=== PATIENT | male | born 1960 | race Caucasian/White ===

== ENCOUNTER 2017-05-16 05:28 | Inpatient (IN) | payer OTHER ==
[2017-05-16] MEDS ORDERED: SODIUM CHLORIDE 1,000 ML IV STA (05:50)
--- NOTE | 2017-05-16 05:50 | PDOC ---
History of Present Illness - General Chief Complaint: Injury Stated Complaint: FALL, DIZZINESS Time Seen by Provider: 05/16/17 05:32 History Source: Patient Exam Limitations: No Limitations - History of Present Illness Travel History: No Initial Comments: 05/16/17 05:54 56-year-old male with a history of hypertension and ruptured peptic ulcer x20 years ago presents to the emergency department complaining of dark stool 2 days. Patient states his bowel movements for the past 2 days has been consistent with a dark, tarry copious amount of stool. Patient states he felt dizzy after sitting on the toilet. He suddenly felt dizzy/room spinning which caused him to fall onto the ground in the restroom, striking his left lat eyeborw with +LOC. Patient was initially nauseous but has subsided since arriving to the emergency department. Patient denies any headache, lightheadedness, visual disturbance, facial pains, neck pain/stiffness, back pains, chest pain, shortness of breath, abdominal pains, flank pains, urinary symptoms. Patient states he has no abdominal discomfort but is afraid that he has a recurrent ruptured peptic ulcer. Pt states he had a GIB x20 years ago from taking too many Motrin Pt states he occasionally drinks beer on the weekends Past History - Past Medical History Allergies/Adverse Reactions: Allergies Allergy/AdvReac Type Severity Reaction Status Date / Time No Known Allergies Allergy Verified 05/16/17 06:21 Home Medications: Ambulatory Orders Amlodipine Besylate 10 mg PO 05/16/17 Aspirin 81 mg PO 05/16/17 - Suicide/Smoking/Psychosocial Hx Smoking History: Unknown if ever smoked Have you smoked in the past 12 months: No Information on smoking cessation initiated: No Hx Alcohol Use: No Drug/Substance Use Hx: No Review of Systems - Review of Systems Able to Perform ROS?: Yes Comments:: 05/16/17 06:05 CONSTITUTIONAL: Absent: fever, chills, diaphoresis, generalized weakness, malaise, loss of appetite HEENT: +swelling/pain to lat left eyebrow Absent: rhinorrhea, nasal congestion, throat pain, throat swelling, difficulty swallowing, mouth swelling, ear pain, eye pain, visual Changes CARDIOVASCULAR: Absent: chest pain, loss of consciousness, palpitations, irregular heart rate, peripheral edema RESPIRATORY: Absent: cough, shortness of breath, dyspnea with exertion, orthopnea, wheezing, stridor, hemoptysis GASTROINTESTINAL: Absent: abdominal pain, abdominal distension, nausea, vomiting, diarrhea, constipation, melena, hematochezia GENITOURINARY: Absent: dysuria, frequency, urgency, hesitancy, hematuria, flank pain, genital pain MUSCULOSKELETAL: Absent: myalgia, arthralgia, joint swelling SKIN: Absent: rash, itching, pallor HEMATOLOGIC/IMMUNOLOGIC: Absent: easy bleeding, easy bruising, lymphadenopathy, frequent infections ENDOCRINE: Absent: unexplained weight gain, unexplained weight loss, heat intolerance, cold intolerance NEUROLOGIC: +LOC Absent: headache, focal weakness or paresthesias, dizziness, unsteady gait, seizure, mental status changes, bladder or bowel incontinence PSYCHIATRIC: Absent: anxiety, depression, suicidal or homicidal ideation, hallucinations. Is the patient limited Mosotho proficient: No *Physical Exam - Vital Signs Last Vital Signs Temp Pulse Resp BP Pulse Ox 98.2 F 104 H 14 124/68 93 L 05/16/17 05:30 05/16/17 05:30 05/16/17 05:30 05/16/17 05:30 05/16/17 05:30 - Physical Exam Comments: 05/16/17 06:06 GENERAL: Well developed, well nourished. Awake and alert. No acute distress. HEENT: +swelling/pain to left lat eyebrow Normocephalic, atraumatic. PERRLA, EOMI. No conjunctival pallor. Sclera are non- icteric. Moist mucous membranes. Oropharynx is clear. NECK: Supple. Full ROM. No JVD. Carotid pulses 2+ and symmetric, without bruits. No thyromegaly. No lymphadenopathy. CARDIOVASCULAR: Regular rate and rhythm. No murmurs, rubs, or gallops. Distal pulses are 2+ and symmetric. PULMONARY: No evidence of respiratory distress. Lungs clear to auscultation bilaterally. No wheezing, rales or rhonchi. ABDOMINAL: Soft. Non-tender. Non-distended. No rebound or guarding. No organomegaly. Normoactive bowel sounds. MUSCULOSKELETAL Normal range of motion at all joints. No bony deformities or tenderness. No CVA tenderness. EXTREMITIES: No cyanosis. No clubbing. No edema. No calf tenderness. SKIN: Warm and dry. Normal capillary refill. No rashes. No jaundice. NEUROLOGICAL: Alert, awake, appropriate. Cranial nerves 2-12 intact. No deficits to light touch and temperature in face, upper extremities and lower extremities. No motor deficits in the in face, upper extremities and lower extremities. Normoreflexic in the upper and lower extremities. Normal speech. Toes are down- going bilaterally. Gait is normal without ataxia. PSYCHIATRIC: Cooperative. Good eye contact. Appropriate mood and affect. Heart Score/ECG Review - History History: Slightly suspicious - Electrocardiogram EKG: Normal - Age Age: >/= 65 - Risk Factors Risk Factors Heart Score: Yes Hx Hypertension, Yes Hx Obesity Based on the list above the patient has:: 1-2 risk factors - Troponin Troponin: </= normal limit - Score Heart Score - Total: 3 ED Treatment Course - LABORATORY CBC & Chemistry Diagram: 05/16/17 06:03 05/16/17 06:03 Progress Note - Progress Note Progress Note: 0637hrs: Dr. Wright talking to Dr. Lowe/hospitalist regarding admission. Pt no longer follows Dr. Herrera *DC/Admit/Observation/Transfer Diagnosis at time of Disposition: Syncope Qualifiers: Syncope type: unspecified Qualified Code(s): R55 - Syncope and collapse GI bleed Qualifiers: GI bleed type/associated pathology: unspecified gastrointestinal hemorrhage type Qualified Code(s): K92.2 - Gastrointestinal hemorrhage, unspecified - Discharge Dispostion Condition at time of disposition: Guarded Admit: Yes - Referrals - Patient Instructions - Post Discharge Activity
--- NOTE | 2017-05-16 05:52 | PDOC ---
*Physical Exam - Vital Signs Last Vital Signs Temp Pulse Resp BP Pulse Ox 98.2 F 104 H 14 124/68 93 L 05/16/17 05:30 05/16/17 05:30 05/16/17 05:30 05/16/17 05:30 05/16/17 05:30 ED Treatment Course - LABORATORY CBC & Chemistry Diagram: 05/16/17 15:00 05/16/17 06:03 Medical Decision Making - Medical Decision Making 05/16/17 05:51 agree with care from ANNALISA Mistry *DC/Admit/Observation/Transfer Diagnosis at time of Disposition: Syncope, GI bleed - Discharge Dispostion Condition at time of disposition: Guarded - Referrals - Patient Instructions - Post Discharge Activity
[2017-05-16 06:09] LABS: BASO % 0.9 % (0-2.0); EOS % 0.6 % (0-4.5); HEMATOCRIT 20.5 % (35.4-49); LYMPH % 21.1 % (8-40); MCH 29.5 pg (25.7-33.7); MCHC 32.7 g/dl (32.0-35.9); MEAN CELL VOLUME 90.2 fl (80-96); MEAN PLT VOLUME 8.6 fl (7.5-11.1); MONO % 7.2 % (3.8-10.2); NEUT % 70.2 % (42.8-82.8); PLATELET COUNT 151 K/MM3 (134-434); RBC 2.28 M/mm3 (4.00-5.60); RDW 13.2 % (11.9-15.9); WHITE BLOOD COUNT 9.6 K/mm3 (4.0-10.0)
[2017-05-16 06:19] LABS: HEMOGLOBIN 6.7 GM/dL (11.7-16.9)
[2017-05-16 06:21] LABS: INR 1.12 (0.82-1.09); PROTHROMBIN TIME (PATIENT) 12.7 SEC (9.98-11.88)
[2017-05-16 06:32] LABS: ALBUMIN 2.7 g/dl (3.4-5.0); ANION GAP 11 (8-16); BILIRUBIN,TOTAL 0.2 mg/dL (0.2-1.0); BLOOD UREA NITROGEN 36 mg/dL (7-18); CALCIUM 7.7 mg/dL (8.5-10.1); CHLORIDE 107 mmol/L (98-107); CO2 22 mmol/L (21-32); CREATININE 0.9 mg/dL (0.7-1.3); GLUCOSE,RANDOM 198 mg/dL (74-106); POTASSIUM 4.1 mmol/L (3.5-5.1); SGOT/AST 11 U/L (15-37); SGPT/ALT 29 U/L (12-78); SODIUM 140 mmol/L (136-145); TOT PROT 4.8 g/dl (6.4-8.2)
[2017-05-16 06:33] LABS: ALK PHOS 51 U/L (45-117)
[2017-05-16] MEDS ORDERED: PANTOPRAZOLE SODIUM 80 MG in SODIUM CHLORIDE 100 ML IVPB SCH (06:45)
--- NOTE | 2017-05-16 07:52 | PN ---
Teaching Attending Note Name of Resident: Dolly Hoang ATTENDING PHYSICIAN STATEMENT I saw and evaluated the patient. I reviewed the resident's note and discussed the case with the resident. I agree with the resident's findings and plan as documented. SUBJECTIVE: CC: melena and syncope HPI: 56 y/o gentleman with h/o HTN, upper GI bleed from a PUD and thoracic disk bulge who presented with melena. fr 2 days he had a total of 4 large black BMs. with heart burn. this am , after having a large BM, he felt dizzy, tried to stand up and had syncope with 20 second LOC, and H sided head trauma. after gaining consciousness he vomited once ( green liquid ) . denies any CP or palpitations before or after event. had SOB after syncope briefly. he drinks 4 bees/daily and takes ASA , no NSAIDs use EKG: NSR , synus tach, L axis Cxray: No congestion OBJECTIVE: NAD , AAOX3, pale MM and conjunctivae. EOMI, round equal pupils , reactive to light , L lateral eye brow abrasionand bruising of hte upper lifd. CV: regular rhythm, tachy. LUngs : CTAB Abd: obese, soft, NT, ND , NL BS Ext: no edema , varicose veins. DP 2+ b/l Neuro : EOMI, tongue, and uvula at mid line , round equal reactive pupils, no facial droop. strength 5/5 in upper and lower ext proximally and distally. sreflexes 2+ knee jerk and biceps b/l declined rectal l exam ASSESSMENT AND PLAN: 56 y/o gentleman with h/o HTN, upper GI bleed from a PUD and thoracic disk bulge who presented with melena and was found to have anemia. 1- Acute blood loss anemia. likely upper GI bleed given his history, use of ASa , and Alcohol use . can't R/o Helicobacter Now hemodynamically stable, but slightly tachycardic. - cont PPI gtt - start IVF at 100 cc/hr - NPO - 2 units of RBC ordered. will repeat HB after that - check Helicobacter pylori stool Ag - Evaluated by GI, for EGD this am . - dc asa , asked not to take it in future , as it is for primary prophylaxis only - advised to stop alcohol consumption 2- HTN: hold norvasc in setting of GI bleed 3- Alcohol dependence: monitor for any withdrawal sx. DIspo : tele
--- NOTE | 2017-05-16 08:18 | HP ---
CHIEF COMPLAINT: " Dark stool x 2 days and I passed out " PCP: ANNALISA Jiménez HISTORY OF PRESENT ILLNESS: Patient is an 56 year old male was brought in to the ED via EMS after he passed out in the toilet this morning at 4 am. As per the patient, he noticed dark colored stool since 2 days and was worried about GI bleed as he had GI bleed 30 yrs ago due to excessive intake of Ibuprofen. This morning at around 4am, he went to the toilet to move his bowels, then suddenly he felt dizzy, lightheaded , saw few lights and lost consciouness. He mentions he fell on the left side on the floor. Patient's fiance heard a loud noise and found the patient lying face down on the floor in the toilet. He passed out for about 10-20 secs then was able to move. Had one episode of vomiting after gaining consciouness. Then pts fiance immediately called 911 and brought here for further evaluation. Patient also reports to have palpitation and shortness of breath occasionally x1 day but denies chest pain, cough, fever, chills, rigors, sweating, headache. No h/o taking over the counter medication like Ibuprofen. But takes aspirin for prophylaxis for heart disease. Bladder habit normal. Sleep Normal. Appetite decreased since 2 days after he ate spicy food and had upset stomach. Patients last colonoscopy was 6 yrs ago and it was normal as per the patient. ER course was notable for: (1) Afebrile, hemodynamically stable, H/H: 6.7/20.5 (2) EKG: Sinus tachycardia with PAC (3) IV NS, IV Protonix 80mg bolus followed by the drip, Awaiting 2 PRBC Recent Travel: PAST MEDICAL HISTORY: Hypertension, Peptic ulcer disease, h/o GI bleed due to excessive use of Ibuprofen 30 yrs ago. PAST SURGICAL HISTORY: Left hand surgery Social History: Smoking: Former smoker. Quit 4 yrs ago. Smoked for 20 + yrs about 1 pack/day Alcohol: Last alcohol intake 4 days ago-4cans of beer, drinks beer daily. Drugs: Denies OCCUPATION: works at [employer] Family History: Non contributory. Allergies No Known Allergies Allergy (Verified 05/16/17 06:21) HOME MEDICATIONS: Home Medications Medication Instructions Recorded Amlodipine Besylate 10 mg PO 05/16/17 Aspirin 81 mg PO 05/16/17 REVIEW OF SYSTEMS CONSTITUTIONAL: Absent: fever, chills, diaphoresis, generalized weakness, malaise, loss of appetite, weight change HEENT: Absent: rhinorrhea, nasal congestion, throat pain, throat swelling, difficulty swallowing, mouth swelling, ear pain, eye pain, visual changes CARDIOVASCULAR: Absent: chest pain, syncope, palpitations, irregular heart rate, lightheadedness , peripheral edema RESPIRATORY: Absent: cough, shortness of breath, dyspnea with exertion, orthopnea, wheezing, stridor, hemoptysis GASTROINTESTINAL: Absent: abdominal pain, abdominal distension, nausea, vomiting, diarrhea, constipation, melena, hematochezia GENITOURINARY: Absent: dysuria, frequency, urgency, hesitancy, hematuria, flank pain, genital pain MUSCULOSKELETAL: Absent: myalgia, arthralgia, joint swelling, back pain, neck pain SKIN: Absent: rash, itching, pallor HEMATOLOGIC/IMMUNOLOGIC: Absent: easy bleeding, easy bruising, lymphadenopathy, frequent infections ENDOCRINE: Absent: unexplained weight gain, unexplained weight loss, heat intolerance, cold intolerance NEUROLOGIC: Absent: headache, focal weakness or paresthesias, dizziness, unsteady gait, seizure, mental status changes, bladder or bowel incontinence PSYCHIATRIC: Absent: anxiety, depression, suicidal or homicidal ideation, hallucinations. PHYSICAL EXAMINATION Vital Signs - 24 hr 05/16/17 05/16/17 05:30 06:56 Temperature 98.2 F 97.6 F Pulse Rate 104 H Pulse Rate [ 95 H Left Radial] Respiratory 14 22 Rate Blood Pressure 124/68 Blood Pressure 134/74 [Left Arm] O2 Sat by Pulse 93 L 96 Oximetry (%) GENERAL: Patient is lying comfortably in bed, Awake, alert, and fully oriented, in no acute distress. Looks pale. HEAD: Mild abrasion over the left eyebrow. No gross trauma to the head. EYES: Pallor +, no icterus, EOM intact. EARS, NOSE, THROAT: Ears normal. Dry mucous membranes +. NECK: No JVD, Supple. LUNGS: B/L Breath sounds equal, clear to auscultation bilaterally. No wheezes, and no crackles. No accessory muscle use. HEART: Tachycardia, Regular rate and rhythm, normal S1 and S2 without murmur. ABDOMEN: Soft, nontender, not distended, normoactive bowel sounds, no guarding, no rebound, no masses. No hepatomegaly or splenomegaly. Per rectal: No blood in stool. Stool for occult blood sent. MUSCULOSKELETAL: Normal range of motion at all joints. No bony deformities or tenderness. No CVA tenderness. UPPER EXTREMITIES: 2+ pulses, warm, well-perfused. No cyanosis. No clubbing. No peripheral edema. LOWER EXTREMITIES: 2+ pulses, warm, well-perfused. No calf tenderness. No peripheral edema. NEUROLOGICAL: No facial droop, 5/5 power in all extremities, reflexes intact, Cranial nerves II-XII intact. Normal speech. Gait not observed. PSYCHIATRIC: Cooperative. Good eye contact. Appropriate mood and affect. SKIN: Warm, dry, normal turgor, no rashes or lesions noted, normal capillary refill. Laboratory Results - last 24 hr 05/16/17 05/16/17 05/16/17 06:03 06:03 06:03 WBC 9.6 RBC 2.28 L Hgb 6.7 L* Hct 20.5 L MCV 90.2 MCH 29.5 MCHC 32.7 RDW 13.2 Plt Count 151 MPV 8.6 Neutrophils % 70.2 Lymphocytes % 21.1 Monocytes % 7.2 Eosinophils % 0.6 Basophils % 0.9 PT with INR 12.70 H INR 1.12 Sodium 140 Potassium 4.1 Chloride 107 Carbon Dioxide 22 Anion Gap 11 BUN 36 H Creatinine 0.9 Creat Clearance w eGFR > 60 Random Glucose 198 H Calcium 7.7 L Total Bilirubin 0.2 AST 11 L ALT 29 Alkaline Phosphatase 51 Total Protein 4.8 L Albumin 2.7 L Blood Type Antibody Screen 05/16/17 06:03 WBC RBC Hgb Hct MCV MCH MCHC RDW Plt Count MPV Neutrophils % Lymphocytes % Monocytes % Eosinophils % Basophils % PT with INR INR Sodium Potassium Chloride Carbon Dioxide Anion Gap BUN Creatinine Creat Clearance w eGFR Random Glucose Calcium Total Bilirubin AST ALT Alkaline Phosphatase Total Protein Albumin Blood Type O POSITIVE Antibody Screen Negative ASSESSMENT/PLAN: Patient is an 56 year old male with significant past medical history of Hypertension, Peptic ulcer disease, h/o GI bleed due to excessive use of Ibuprofen 30 yrs ago was brought in to the ED via EMS after his passed out in the toilet this morning at 4 am was found to have anemia. # Acute GI bleed-likely Upper GI. c/o dark stool x 2days, h/o GI bleed in the past, use of aspirin and alcohol intake daily puts him at greater risk of Upper GI bleed. On arrival, vitals stable. No orthostatics. Admit in Tele/Inpatient NPO IV NS @ 100mls/hr Open two large bore IV canula IV Protonix drip 2 PRBC transfusion [address] with Dr. Delgado, once pt receives the blood, plan is to take him for Endoscopy. If EGD is negative, plan is to do colonoscopy, as per Dr. Delgado. Avoid Aspirin Alcohol cessation counseling H.pylori studies sent # Syncope Likely secondary to GI bleed. Head CT: Soft tissue swelling in the left superior orbital/lateral margin. negative for any acute pathology. EKG: Sinus tachycardia with PVCs CXR: Large heart. Old rib # # Hypertension-controlled. Hold Amlodipine. Blood pressure might drop significantly if he has another episode of massive GI bleed. # FEN IV NS @ 100mls/hr Electrolytes wnl NPO # Prophylaxis For DVT: On SCDS, no heparin due to GI bleed For GI: On Protonix drip # Code Status: Full Code # Dispo: Duration of stay unknown. Illness, Investigation and plan of care explained to the patient and his fiance. They verbalized understanding. Case discussed with Dr. Larry. Visit type - Emergency Visit Emergency Visit: Yes ED Registration Date: 05/16/17 Care time: The patient presented to the Emergency Department on the above date and was hospitalized for further evaluation of their emergent condition. - New Patient This patient is new to me today: Yes Date on this admission: 05/16/17 - Critical Care Critical Care patient: No
[2017-05-16] MEDS ORDERED: SODIUM CHLORIDE 1,000 ML IV SCH (08:30)
--- NOTE | 2017-05-16 08:30 | CON.GI ---
Consult Consult Specialty:: GI - History of Present Illness History of Present Illness: Chart reviewed. A 56 yom with remote history of upper GI bleeding ulcer presents with 2 days of melanotic stools followed by syncopal episode at home. In ED, pale, AAO, Hgb 6 g /dl, normotensive, but tachycardic, no orthostatics done up to this point. Reports one episode of vomiting 1 day ago w/o stigmata of bleeding. Denies obdominal pain, fever, chills, back pain, dysphagia, odynophagia, hematemesis, jaundice. No history of liver disease, excessive bleeding. Home medications include ASA. No other OTC drugs incuding NSAIDs. No alcohol abuse. - History Source History Provided By: Patient, Medical Record Limitations to Obtaining History: No Limitations - Past Medical History Cardio/Vascular: Yes: HTN - Alcohol/Substance Use Hx Alcohol Use: No - Smoking History Smoking history: Unknown if ever smoked Have you smoked in the past 12 months: No Home Medications - Allergies Allergies/Adverse Reactions: Allergies Allergy/AdvReac Type Severity Reaction Status Date / Time No Known Allergies Allergy Verified 05/16/17 06:21 - Home Medications Home Medications: Ambulatory Orders Amlodipine Besylate 10 mg PO 05/16/17 Aspirin 81 mg PO 05/16/17 Family Disease History - Family Disease History Family History: Unremarkable Review of Systems Findings/Remarks: asper H&P, HPI Physical Exam-GI Vital Signs: Vital Signs Temperature 97.6 F 05/16/17 06:56 Pulse Rate 95 H 05/16/17 06:56 Respiratory Rate 22 05/16/17 06:56 Blood Pressure 134/74 05/16/17 06:56 O2 Sat by Pulse Oximetry (%) 96 05/16/17 06:56 Constitutional: Yes: Well Nourished, No Distress, Calm, Pallor Eyes: Yes: Conjunctiva Clear HENT: Yes: Atraumatic Neck: Yes: Supple Cardiovascular: Yes: Regular Rate and Rhythm Respiratory: Yes: Regular Gastrointestinal Inspection: No: Ascites, Distention ...Palpate: Yes: Soft. No: Firm/Rigid, Guarding, Tenderness Neurological: Yes: Alert, Oriented Labs: CBC, BMP 05/16/17 06:03 05/16/17 06:03 INR, PTT INR 1.12 (0.82-1.09) 05/16/17 06:03 Laboratory Results - last 24 hr 05/16/17 05/16/17 05/16/17 06:03 06:03 06:03 WBC 9.6 RBC 2.28 L Hgb 6.7 L* Hct 20.5 L MCV 90.2 MCH 29.5 MCHC 32.7 RDW 13.2 Plt Count 151 MPV 8.6 Neutrophils % 70.2 Lymphocytes % 21.1 Monocytes % 7.2 Eosinophils % 0.6 Basophils % 0.9 PT with INR 12.70 H INR 1.12 Sodium 140 Potassium 4.1 Chloride 107 Carbon Dioxide 22 Anion Gap 11 BUN 36 H Creatinine 0.9 Creat Clearance w eGFR > 60 Random Glucose 198 H Calcium 7.7 L Total Bilirubin 0.2 AST 11 L ALT 29 Alkaline Phosphatase 51 Total Protein 4.8 L Albumin 2.7 L Blood Type Antibody Screen Crossmatch 05/16/17 05/16/17 06:03 06:32 WBC RBC Hgb Hct MCV MCH MCHC RDW Plt Count MPV Neutrophils % Lymphocytes % Monocytes % Eosinophils % Basophils % PT with INR INR Sodium Potassium Chloride Carbon Dioxide Anion Gap BUN Creatinine Creat Clearance w eGFR Random Glucose Calcium Total Bilirubin AST ALT Alkaline Phosphatase Total Protein Albumin Blood Type O POSITIVE O POSITIVE Antibody Screen Negative Crossmatch See Detail Assessment/Plan A 56 yom with remote history of upper GI bleeding presents with what appears to be recent GI bleeding with symptomatic blood loss anemia. No overt signs of ongoing GI bleed while in ED Agree with PPI bolus+drip IVF PRBC transusion EGD this AM Discussed with the resident, nurse and the patient while his family present at bedside. Monitor VS, Hgb If EGD negative, will plan colonoscopy
[2017-05-16 08:59] LABS: ARTERIAL BLD GAS O2 SATURATION 96.8 % (90-98.9); ARTERIAL BLOOD GAS BASE EXCESS -3.2 meq/l (-2-2); ARTERIAL BLOOD GAS PCO2 33.2 mmHg (35-45); ARTERIAL BLOOD GAS PO2 81.8 mmHg (80-100); ARTERIAL BLOOD GAS pH 7.41 (7.35-7.45)
[2017-05-16 09:05] LABS: ALLENS TEST POSITIVE
[2017-05-16] MEDS ORDERED: ETOMIDATE 20 MG/10 ML AMPUL IVPUSH ONE (11:29)
[2017-05-16] MEDS ORDERED: LIDOCAINE HCL 2% (20ML MULTI-DOSE VIAL) NR ONE (11:29)
[2017-05-16] MEDS ORDERED: PROPOFOL 20 ML ONE (11:29)
--- NOTE | 2017-05-16 13:02 | EKG ---
Test Reason : Blood Pressure : / mmHG Vent. Rate : 103 BPM Atrial Rate : 103 BPM P-R Int : 128 ms QRS Dur : 090 ms QT Int : 366 ms P-R-T Axes : -23 -30 026 degrees QTc Int : 479 ms SINUS TACHYCARDIA WITH PREMATURE ATRIAL COMPLEXES LEFT AXIS DEVIATION ABNORMAL ECG NO PREVIOUS ECGS AVAILABLE Confirmed by OLIVIA ADAMS MD ([id number]) on 05/16/2017 1:02:08 PM Referred By: Confirmed By:OLIVIA ADAMS MD
--- NOTE | 2017-05-16 13:29 | PROC ---
Endoscopy Procedure Endoscopy procedure completed. Please see scanned procedure report. s/p EGD with cclipping and Epi injection A 1 x1.5 cm duodenal bulb/2nd portion actively bleeding ulcer was found, injected with 1:10,000 epi (20 cc total) and clipped. Complete hemostasis achieved. ICU monitoring cont. PPI IV Carafate liquid 1 gm qid NPO Hgb q6h Stool for H. pylori Ag Repeat EGD as needed and the day before discharging home AXR now r/o perforation
[2017-05-16] MEDS: SODIUM CHLORIDE 1,000 ML IV SCH (13:30)
[2017-05-16 15:43] LABS: HEMATOCRIT 22.9 % (35.4-49); HEMOGLOBIN 7.6 GM/dL (11.7-16.9); MCH 29.5 pg (25.7-33.7); MCHC 33.3 g/dl (32.0-35.9); MEAN CELL VOLUME 88.5 fl (80-96); MEAN PLT VOLUME 8.9 fl (7.5-11.1); PLATELET COUNT 116 K/MM3 (134-434); RBC 2.58 M/mm3 (4.00-5.60); RDW 13.7 % (11.9-15.9); WHITE BLOOD COUNT 9.5 K/mm3 (4.0-10.0)
[2017-05-16] MEDS ORDERED: SUCRALFATE 1 GM/10 ML UNIT DOSE CUPS PO SCH (16:30)
[2017-05-16] MEDS: PANTOPRAZOLE SODIUM 80 MG in SODIUM CHLORIDE 100 ML IVPB SCH (19:00)
--- NOTE | 2017-05-16 19:55 | CONSULT ---
Consult - text type - Consultation Consultation Note: PULM/CCM Consult ICU Admission: CC: GIB HPI: Briefly Mr Leung is a 56-year-old male with a history of hypertension and ruptured peptic ulcer ~ x20 years ago possibly 2/2 Motrin use who today presented to the ED complaining of dark stool 2 days. Risk factors of asa use, ETOH use/abuse, and hx of peptic ulcer disease. He relates an associated syncopal episode today with ~ 20sec LOC, w/o sz activity or post deficit. Does relate striking head but with minimal force and no significant trauma noted. States felt disease after dark tarry BM this am. Denied Chest pn, SOB, abd pain , [place], visual changes, neck pain. In ED was noted to have conjunctival pallor, afebrile, normotensive, mildly tachy. He had Hgb 6.7, down from 14 in 2010 at this institution. He was started on PPI gtt, seen by GI, transfused two PRBC and underwent EGD which showed actively bleeding 1.5 x 1 cm duodenal ulcer which was injected with Epi and clipped, hemostasis was achieved. Pt tolerated procedure well. Repeat Hgb 7.6 post 2 prbc, another to be sent. Admitted to ICU for overnight observation, felt to be high risk for rebleed. PAST MEDICAL HISTORY: Hypertension, Peptic ulcer disease, h/o GI bleed due to excessive use of Ibuprofen 30 yrs ago. PAST SURGICAL HISTORY: Left hand surgery Social History: Smoking: Former smoker. Quit 4 yrs ago. Smoked for 20 + yrs about 1 pack/day Alcohol: Last alcohol intake 4 days ago-4cans of beer, drinks beer daily. Drugs: Denies OCCUPATION: works at [employer] Family History: Non contributory. Allergies No Known Allergies Allergy (Verified 05/16/17 06:21) Active Medications Chlorhexidine Gluconate (Hibiclens For Decolonization -) 1 applic TP HS [facility] Pantoprazole Sodium 80 mg/ (Sodium Chloride) 100 mls @ 10 mls/hr IVPB Q10H [facility] PRN Reason: 8 MG/HR Last Admin: 05/16/17 19:00 Dose: 0 mls Sodium Chloride (Normal Saline -) 1,000 mls @ 100 mls/hr IV ASDIR [facility] Last Admin: 05/16/17 13:30 Dose: 600 mls Mupirocin (Bactroban Ointment (For Decolonization) -) 1 applic NS BID [facility] Stop: 05/21/17 21:59 Sucralfate (Carafate Oral Suspension -) 1 gm PO ACHS [facility] Vital Signs Temp 99.0 F 05/16/17 19:30 Pulse 88 05/16/17 19:30 Resp 20 05/16/17 19:30 BP 132/70 05/16/17 19:30 Pulse Ox 100 05/16/17 18:30 Intake & Output 05/15/17 05/16/17 05/16/17 23:59 11:59 23:59 Intake Total 1450 Output Total 2500 Balance -1050 Weight 127.006 kg Intake: IV 1100 Blood Product 350 Output: Urine 1800 Emesis 700 Other: Height 6 ft 1 in Body Mass Index (BMI) 36.9 Weight Measurement Method Est/Stated by Patient CBCD WBC 9.5 K/mm3 (4.0-10.0) 05/16/17 15:00 RBC 2.58 M/mm3 (4.00-5.60) L 05/16/17 15:00 Hgb 7.6 GM/dL (11.7-16.9) L D 05/16/17 15:00 Hct 22.9 % (35.4-49) L 05/16/17 15:00 MCV 88.5 fl (80-96) 05/16/17 15:00 MCHC 33.3 g/dl (32.0-35.9) 05/16/17 15:00 RDW 13.7 % (11.9-15.9) 05/16/17 15:00 Plt Count 116 K/MM3 (134-434) L D 05/16/17 15:00 MPV 8.9 fl (7.5-11.1) 05/16/17 15:00 CMP Sodium 140 mmol/L (136-145) 05/16/17 06:03 Potassium 4.1 mmol/L (3.5-5.1) 05/16/17 06:03 Chloride 107 mmol/L (98-107) 05/16/17 06:03 Carbon Dioxide 22 mmol/L (21-32) 05/16/17 06:03 Anion Gap 11 (8-16) 05/16/17 06:03 BUN 36 mg/dL (7-18) H 05/16/17 06:03 Creatinine 0.9 mg/dL (0.7-1.3) 05/16/17 06:03 Creat Clearance w eGFR > 60 (>60) 05/16/17 06:03 Random Glucose 198 mg/dL (74-106) H 05/16/17 06:03 Calcium 7.7 mg/dL (8.5-10.1) L 05/16/17 06:03 Total Bilirubin 0.2 mg/dL (0.2-1.0) 05/16/17 06:03 AST 11 U/L (15-37) L 05/16/17 06:03 ALT 29 U/L (12-78) 05/16/17 06:03 Alkaline Phosphatase 51 U/L (45-117) 05/16/17 06:03 Total Protein 4.8 g/dl (6.4-8.2) L 05/16/17 06:03 Albumin 2.7 g/dl (3.4-5.0) L 05/16/17 06:03 PE: EKG: sinus, L axis deviation, no ischemic changes Cxray: No congestion, infiltrate or pneumothorax ABD xray post procedure, no free air, insufflated loops of bowel OBJECTIVE: Gen: awake alert middle age man without distrees HEENT: small abrasion to L lateral eye brow, EOMI CV: regular rhythm, tachy. LUngs : CTAB Abd: obese, soft, NT, ND , NL BS Ext: no edema , varicose veins. DP 2+ b/l Neuro: non-focal, no tremor ASSESSMENT/PLAN: A/ 56 year old male with hx of Peptic ulcer disease, presenting with acute anemia, duodenal ulcer with active bleeding now post EGD with ulcer injected and clipped, here for o/n observation P/ -normal transfusion thresholds, Hgb < 7, Plts < 50, INR >1.5 -serial CBC -PPI gtt x 72 hrs then BID -maintain adequate access, 2 x 18 or greater -consider GDA embo with IR if rebleeds -monitor for ETOH withdrawal, CIWA if concerned -h. pylori studies -sulculfrate -advance diet as per GI Prophy: SCD, PPI Code Status: Full Code Dispo: to floor in am if no further evidence of bleeding 35 min CCT Current Active Problems GI bleed (Acute) Syncope (Acute)
--- NOTE | 2017-05-16 20:11 | PN ---
Progress Note (short form) - Note Progress Note: abd xr results noted
[2017-05-16 22:17] VITALS: BMI 33.2
[2017-05-16 23:22] LABS: HEMATOCRIT 20.7 % (35.4-49); MCHC 33.9 g/dl (32.0-35.9); MEAN CELL VOLUME 88.4 fl (80-96); MEAN PLT VOLUME 8.7 fl (7.5-11.1); PLATELET COUNT 112 K/MM3 (134-434); RBC 2.35 M/mm3 (4.00-5.60); RDW 14.2 % (11.9-15.9); WHITE BLOOD COUNT 8.3 K/mm3 (4.0-10.0)
[2017-05-17] MEDS: SUCRALFATE 1 GM/10 ML UNIT DOSE CUPS PO SCH ×6 (00:49→21:17)
[2017-05-17] MEDS: MUPIROCIN 2% TOPICAL OINTMENT FOR DECOLONIZATION NS SCH ×3 (00:51→21:17)
[2017-05-17] MEDS: CHLORHEXIDINE GLUCONATE 4% CLEANSER FOR DECOLONIZATION TP SCH ×2 (00:52→21:17)
[2017-05-17] MEDS: SODIUM CHLORIDE 1,000 ML IV SCH ×2 (00:53→18:55)
[2017-05-17] MEDS: PANTOPRAZOLE SODIUM 80 MG in SODIUM CHLORIDE 100 ML IVPB SCH ×2 (05:40→18:54)
[2017-05-17 06:07] LABS: BASO % 0.7 % (0-2.0); HEMATOCRIT 18.4 % (35.4-49); LYMPH % 28.1 % (8-40); MCH 29.9 pg (25.7-33.7); MCHC 33.5 g/dl (32.0-35.9); MEAN CELL VOLUME 89.2 fl (80-96); MEAN PLT VOLUME 8.7 fl (7.5-11.1); MONO % 7.8 % (3.8-10.2); NEUT % 62.4 % (42.8-82.8); PLATELET COUNT 103 K/MM3 (134-434); RBC 2.07 M/mm3 (4.00-5.60); RDW 14.4 % (11.9-15.9); WHITE BLOOD COUNT 5.7 K/mm3 (4.0-10.0)
--- NOTE | 2017-05-17 06:37 | PN ---
Physical Exam: SUBJECTIVE: Patient seen and examined. Feels better after transfusion yesterday. 1x black BM yesterday. No chest pain, palpitations, stomach pain. OBJECTIVE: Vital Signs Period Temp Pulse Resp BP Sys/Alas Pulse Ox Last 24 Hr 97.6 F-99.7 F 72-100 15-24 113-1038/51-80 95-100 GENERAL: lying comfortably in bed, nad, aaox3 EYES: sclera anicteric, conjunctiva clear ENT: oropharynx clear without exudates, MMM LUNGS: CTAB HEART: rrr, normal s1/s2, no m/r/g ABDOMEN: protuberant, soft, ntnd, normoactive BS LOWER EXTREMITIES: 2+ DP pulses, wwp, varicose veins, no edema 05/17/17 05/17/17 05:10 05:10 WBC 5.7 D RBC 2.07 L Hgb 6.2 L* D Hct 18.4 L Plt Count 103 L Sodium 145 Potassium 4.1 Chloride 113 H Carbon Dioxide 24 Anion Gap 8 BUN 19 H D Creatinine 0.7 D Creat Clearance w eGFR > 60 Random Glucose 109 H D Calcium 7.5 L Hepatic Panel Total Bilirubin 0.3 mg/dL (0.2-1.0) D 05/17/17 05:10 AST 13 U/L (15-37) L 05/17/17 05:10 ALT 21 U/L (12-78) D 05/17/17 05:10 Alkaline Phosphatase 43 U/L (45-117) L 05/17/17 05:10 Albumin 2.5 g/dl (3.4-5.0) L 05/17/17 05:10 Active Medications Chlorhexidine Gluconate (Hibiclens For Decolonization -) 1 applic TP HS [facility] Last Admin: 05/17/17 21:17 Dose: 1 applic Pantoprazole Sodium 80 mg/ (Sodium Chloride) 100 mls @ 10 mls/hr IVPB Q10H [facility] PRN Reason: 8 MG/HR Last Admin: 05/17/17 18:54 Dose: 10 mls/hr Sodium Chloride (Normal Saline -) 1,000 mls @ 100 mls/hr IV ASDIR [facility] Last Admin: 05/17/17 18:55 Dose: 100 mls/hr Mupirocin (Bactroban Ointment (For Decolonization) -) 1 applic NS BID [facility] Stop: 05/21/17 21:59 Last Admin: 05/17/17 21:17 Dose: 1 applic Sucralfate (Carafate Oral Suspension -) 1 gm PO ACHS [facility] Last Admin: 05/17/17 21:17 Dose: 1 gm ASSESSMENT/PLAN: 56yo man with PMH of HTN, thoracic disk bulge and remote UGIB who p/w syncope in the setting of several days of melena and found to have Hgb 6.7. #PUD with actively bleeding duo bulb ulcer s/p EGD w/ clips and epi yesterday -GI consulted -Acute blood loss anemia this morning - transfuse additional 2U (total 4U) -CBC Q6H, transfuse <7 hgb -PPI gtt -send H. pylori stool Ag -Carafate 1gm ACHS #HTN: hold norvasc in setting of GI bleed #EtOH dependence: monitor for any withdrawal sx. #FEN: NS@100 / lytes wnl / Clears (advance per GI) #PPX -DVT - SCD's -GI - on protonix gtt #DISPO: continue ICU monitoring FULL code d/w Dr. Laron Flores MD PGY1 - Internal Medicine Visit type - Emergency Visit Emergency Visit: No - New Patient This patient is new to me today: Yes Date on this admission: 05/17/17 - Critical Care Critical Care patient: Yes Total Critical Care Time (in minutes): 40 Critical Care Statement: The care of this patient involved high complexity decision making to prevent further life threatening deterioration of the patient 's condition and/or to evaluate & treat vital organ system(s) failure or risk of failure.
[2017-05-17 06:44] LABS: ALBUMIN 2.5 g/dl (3.4-5.0); ANION GAP 8 (8-16); BLOOD UREA NITROGEN 19 mg/dL (7-18); CALCIUM 7.5 mg/dL (8.5-10.1); CHLORIDE 113 mmol/L (98-107); CO2 24 mmol/L (21-32); GLUCOSE,RANDOM 109 mg/dL (74-106); POTASSIUM 4.1 mmol/L (3.5-5.1); SODIUM 145 mmol/L (136-145)
[2017-05-17 06:48] LABS: ALK PHOS 43 U/L (45-117); BILIRUBIN,TOTAL 0.3 mg/dL (0.2-1.0); CHOLESTEROL 94 mg/dL (50-200); CREATININE 0.7 mg/dL (0.7-1.3); SGOT/AST 13 U/L (15-37); SGPT/ALT 21 U/L (12-78); TOT PROT 4.3 g/dl (6.4-8.2); TRIGLYCERIDES 102 mg/dL (35-160)
[2017-05-17 06:53] LABS: HEMOGLOBIN 6.2 GM/dL (11.7-16.9)
--- NOTE | 2017-05-17 07:05 | PN ---
Physical Exam: SUBJECTIVE: Patient seen and examined. No problems overnight- no melena, abdominal pain or hematemesis..Received 2units PRBCs yesterday before endoscopy but dropped H&H this am. For 2 more units of PRBCs today. Slept with NC-2L overnight but sating well on room air. OBJECTIVE: Vital Signs Period Temp Pulse Resp BP Sys/Alsa Pulse Ox Last 24 Hr 98.0 F-99.7 F 72-100 15-24 113-1038/51-80 95-100 Vital Signs Temp 99.7 F H 05/17/17 02:00 Pulse 72 05/17/17 06:00 Resp 20 05/17/17 04:00 BP 126/62 05/17/17 06:00 Pulse Ox 100 05/16/17 21:00 Intake & Output 05/16/17 05/16/17 05/17/17 11:59 23:59 11:59 Intake Total 1890 770 Output Total 2900 850 Balance -1010 -80 Weight 127.006 kg 127.006 kg 133.81 kg Intake: IV 1500 700 Normal Saline - 1,000 ml 400 700 @ 100 mls/hr IV ASDIR [facility] Rx#:[id number] IVPB 40 70 Blood Product 350 Output: Urine 2200 850 Void 400 850 Emesis 700 Other: Voiding Method Urinal Height 1.85 m 1.96 m Body Mass Index (BMI) 36.9 33.2 Weight Measurement Method Stated by Patient Built in [facility] Weight Measurement Method Est/Stated by Patient GENERAL: The patient is babatunde PERRL, extraocke, alert, and fully oriented, sating well on room air. HEAD: Bruise on R side of eye EYES: Bruise over R eye.ular movements intact, sclera anicteric, conjunctiva clear. No ptosis. ENT: oropharynx clear without exudates, moist mucous membranes. NECK: Trachea midline, full range of motion, supple. LUNGS: Breath sounds equal, clear to auscultation bilaterally, no wheezes, no crackles, no accessory muscle use. HEART: Regular rate and rhythm, S1, S2 without murmur, rub or gallop. ABDOMEN: Soft, obese, nonepigastric tenderness, nontender, nondistended, normoactive bowel sounds, EXTREMITIES: 2+ pulses, warm, well-perfused, no edema. NEUROLOGICAL: AAO Normal speech, gait not observed. PSYCH: Normal mood, normal affect. SKIN: Warm, dry, normal turgor, no rashes or lesions noted Laboratory Results - last 24 hr 05/16/17 05/16/17 05/16/17 06:03 06:32 08:45 WBC RBC Hgb Hct MCV MCH MCHC RDW Plt Count MPV Neutrophils % Lymphocytes % Monocytes % Eosinophils % Basophils % Puncture Site Right radial ABG pH 7.41 ABG pCO2 at Pt Temp 33.2 L ABG pO2 at Pt Temp 81.8 ABG HCO3 20.6 L ABG O2 Sat (Measured) 96.8 ABG O2 Content 7.9 L* ABG Base Excess -3.2 L Gonzalo Test Positive O2 Delivery Device Room air Oxygen Flow Rate No Mechanical Rate No PEEP 0.0 Sodium Potassium Chloride Carbon Dioxide Anion Gap BUN Creatinine Creat Clearance w eGFR Random Glucose Calcium Total Bilirubin AST ALT Alkaline Phosphatase Total Protein Albumin Triglycerides Cholesterol Blood Type O POSITIVE O POSITIVE Antibody Screen Negative Crossmatch See Detail See Detail 05/16/17 05/16/17 05/17/17 15:00 23:00 05:10 WBC 9.5 8.3 5.7 D RBC 2.58 L 2.35 L 2.07 L Hgb 7.6 L D 7.0 L 6.2 L* D Hct 22.9 L 20.7 L 18.4 L MCV 88.5 88.4 89.2 MCH 29.5 30.0 29.9 MCHC 33.3 33.9 33.5 RDW 13.7 14.2 14.4 Plt Count 116 L D 112 L 103 L MPV 8.9 8.7 8.7 Neutrophils % 62.4 Lymphocytes % 28.1 D Monocytes % 7.8 Eosinophils % 1.0 Basophils % 0.7 Puncture Site ABG pH ABG pCO2 at Pt Temp ABG pO2 at Pt Temp ABG HCO3 ABG O2 Sat (Measured) ABG O2 Content ABG Base Excess Gonzalo Test O2 Delivery Device Oxygen Flow Rate Mechanical Rate PEEP Sodium Potassium Chloride Carbon Dioxide Anion Gap BUN Creatinine Creat Clearance w eGFR Random Glucose Calcium Total Bilirubin AST ALT Alkaline Phosphatase Total Protein Albumin Triglycerides Cholesterol Blood Type Antibody Screen Crossmatch 05/17/17 05:10 WBC RBC Hgb Hct MCV MCH MCHC RDW Plt Count MPV Neutrophils % Lymphocytes % Monocytes % Eosinophils % Basophils % Puncture Site ABG pH ABG pCO2 at Pt Temp ABG pO2 at Pt Temp ABG HCO3 ABG O2 Sat (Measured) ABG O2 Content ABG Base Excess Gonzalo Test O2 Delivery Device Oxygen Flow Rate Mechanical Rate PEEP Sodium 145 Potassium 4.1 Chloride 113 H Carbon Dioxide 24 Anion Gap 8 BUN 19 H D Creatinine 0.7 D Creat Clearance w eGFR > 60 Random Glucose 109 H D Calcium 7.5 L Total Bilirubin 0.3 D AST 13 L ALT 21 D Alkaline Phosphatase 43 L Total Protein 4.3 L Albumin 2.5 L Triglycerides 102 Cholesterol 94 Blood Type Antibody Screen Crossmatch Active Medications Generic Name Dose Route Start Last Admin Trade Name Freq PRN Reason Stop Dose Admin Chlorhexidine Gluconate 1 applic 05/16/17 22:00 05/17/17 00:52 Hibiclens For Decolonization - TP 1 applic HS [facility] Administration Pantoprazole Sodium 80 mg/ 100 mls @ 10 mls/hr 05/16/17 16:45 05/17/17 05:40 Sodium Chloride IVPB 10 mls/hr Q10H [facility] Administration 8 MG/HR Sodium Chloride 1,000 mls @ 100 mls/hr 05/16/17 15:27 05/17/17 00:53 Normal Saline - IV 100 mls/hr ASDIR [facility] Administration Mupirocin 1 applic 05/16/17 22:00 05/17/17 00:51 Bactroban Ointment (For Decolonization) - NS 05/21/17 21:59 1 applic BID [facility] Administration Sucralfate 1 gm 05/16/17 16:30 05/17/17 06:08 Carafate Oral Suspension - PO 1 gm ACHS [facility] Administration ASSESSMENT/PLAN: 56 y/o M with PMHx of HTN, thoracic disk bulge, presenting with UGI 2/2 to chronic PUD and anemia. GI/Nutrition Acute GI bleed-likely Upper GI. H&H on presentation- 6.7 Received 2units PRBCs Endoscopy done yesterday- Dr Delgado For 2 more units PRBCs today- pending IV NS @ 100mls/hr NPO IV Protonix drip Oral sucralfate 1gm ACHS pending H pylori test CBC Monitor Neuro: AAOx3 Hx of Syncope-Likely due to anemia Head CT: Soft tissue swelling in the left superior orbital/lateral margin. negative for any acute pathology. Cardio/Lytes: Hypertension-normotensive Hold Amlodipine. Monitor BP IV NS @ 100mls/hr Electrolytes -stable CMP NPO Respiratory: Acute hypoxic respiratory failure Resolved Prophylaxis: For DVT: On SCDS, no heparin due to GI bleed For GI: On Protonix drip Dispo: For likely tele transfer if stable after transfusion Visit type - Emergency Visit Emergency Visit: Yes ED Registration Date: 05/16/17 Care time: The patient presented to the Emergency Department on the above date and was hospitalized for further evaluation of their emergent condition. - New Patient This patient is new to me today: Yes Date on this admission: 05/17/17 - Critical Care Critical Care patient: Yes Total Critical Care Time (in minutes): 30 Critical Care Statement: The care of this patient involved high complexity decision making to prevent further life threatening deterioration of the patient 's condition and/or to evaluate & treat vital organ system(s) failure or risk of failure. - Discharge Referral Referred to [facility] No
[2017-05-17 07:23] LABS: HDL CHOLESTEROL 26 mg/dL (40-60); LDL CHOLESTEROL (ONLY SJRH) 61 mg/dL (5-100)
--- NOTE | 2017-05-17 11:00 | PN ---
Teaching Attending Note Name of Resident: Madison Ariana Whitakerpham ATTENDING PHYSICIAN STATEMENT I saw and evaluated the patient. I reviewed the resident's note and discussed the case with the resident. I agree with the resident's findings and plan as documented. SUBJECTIVE: Patient seen and examined in the ICU. Awake and alert. Receiving pRBCs. Denies abdominal pain. Denies CP or SOB. PPI drip. Intake & Output 05/14/17 05/15/17 05/16/17 05/17/17 23:59 23:59 23:59 23:59 Intake Total 1890 770 Output Total 2900 850 Balance -1010 -80 Weight 280 lb 295 lb Last Vital Signs Temp Pulse Resp BP Pulse Ox 99.6 F 70 18 122/86 100 05/17/17 10:00 05/17/17 10:00 05/17/17 10:00 05/17/17 10:00 05/16/17 21:00 Active Medications Chlorhexidine Gluconate (Hibiclens For Decolonization -) 1 applic TP HS [facility] Last Admin: 05/17/17 00:52 Dose: 1 applic Pantoprazole Sodium 80 mg/ (Sodium Chloride) 100 mls @ 10 mls/hr IVPB Q10H [facility] PRN Reason: 8 MG/HR Last Admin: 05/17/17 05:40 Dose: 10 mls/hr Sodium Chloride (Normal Saline -) 1,000 mls @ 100 mls/hr IV ASDIR [facility] Last Admin: 05/17/17 00:53 Dose: 100 mls/hr Mupirocin (Bactroban Ointment (For Decolonization) -) 1 applic NS BID [facility] Stop: 05/21/17 21:59 Last Admin: 05/17/17 10:29 Dose: 1 applic Sucralfate (Carafate Oral Suspension -) 1 gm PO ACHS [facility] Last Admin: 05/17/17 10:28 Dose: 1 gm OBJECTIVE: Gen: awake alert, no acute distress HEENT: small abrasion to L lateral eye brow, EOMI CV: regular rhythm, tachy. Lungs : Clear Abd: obese, soft, NT, ND , NL BS Ext: no edema , varicose veins. DP 2+ b/l Neuro: non-focal, no tremor Laboratory Results - last 24 hr 05/16/17 05/16/17 05/16/17 06:03 06:32 15:00 WBC 9.5 RBC 2.58 L Hgb 7.6 L D Hct 22.9 L MCV 88.5 MCH 29.5 MCHC 33.3 RDW 13.7 Plt Count 116 L D MPV 8.9 Neutrophils % Lymphocytes % Monocytes % Eosinophils % Basophils % Sodium Potassium Chloride Carbon Dioxide Anion Gap BUN Creatinine Creat Clearance w eGFR Random Glucose Calcium Total Bilirubin AST ALT Alkaline Phosphatase Total Protein Albumin Triglycerides Cholesterol Total LDL Cholesterol HDL Cholesterol Blood Type O POSITIVE O POSITIVE Antibody Screen Negative Crossmatch See Detail See Detail 05/16/17 05/17/17 05/17/17 23:00 05:10 05:10 WBC 8.3 5.7 D RBC 2.35 L 2.07 L Hgb 7.0 L 6.2 L* D Hct 20.7 L 18.4 L MCV 88.4 89.2 MCH 30.0 29.9 MCHC 33.9 33.5 RDW 14.2 14.4 Plt Count 112 L 103 L MPV 8.7 8.7 Neutrophils % 62.4 Lymphocytes % 28.1 D Monocytes % 7.8 Eosinophils % 1.0 Basophils % 0.7 Sodium 145 Potassium 4.1 Chloride 113 H Carbon Dioxide 24 Anion Gap 8 BUN 19 H D Creatinine 0.7 D Creat Clearance w eGFR > 60 Random Glucose 109 H D Calcium 7.5 L Total Bilirubin 0.3 D AST 13 L ALT 21 D Alkaline Phosphatase 43 L Total Protein 4.3 L Albumin 2.5 L Triglycerides 102 Cholesterol 94 Total LDL Cholesterol 61 HDL Cholesterol 26 L Blood Type Antibody Screen Crossmatch 05/17/17 08:20 WBC RBC Hgb Hct MCV MCH MCHC RDW Plt Count MPV Neutrophils % Lymphocytes % Monocytes % Eosinophils % Basophils % Sodium Potassium Chloride Carbon Dioxide Anion Gap BUN Creatinine Creat Clearance w eGFR Random Glucose Calcium Total Bilirubin AST ALT Alkaline Phosphatase Total Protein Albumin Triglycerides Cholesterol Total LDL Cholesterol HDL Cholesterol Blood Type O POSITIVE Antibody Screen Negative Crossmatch ASSESSMENT/PLAN: Acute GI bleed due to Peptic ulcer disease/Duodenal Ulcer Acute anemia S/P EGD with ulcer injected and clipped NSAID/ASA use -Normal transfusion thresholds, Hgb < 7, Plts < 50, INR >1.5 -serial CBC -PPI gtt x 72 hrs then BID -maintain adequate access -consider GDA embo with IR if rebleeds -monitor for ETOH withdrawal, CIWA if needed -sulculfrate -PO when OK with GI -SCDs Dr Feliz Critical care time spent in reviewing chart, evaluating patient and formulating plan - 36 minutes.
[2017-05-17] MEDS ORDERED: PT OWN MED DRAWER 7, Y5N ONE ×3 (13:55→17:07)
--- NOTE | 2017-05-17 14:19 | PN ---
Progress Note, Physician History of Present Illness: Chart reviewed. Asymptomatic, no complaints. Had melanotic, formed stools this am. Hgb 6 g/dl VS normal. Receiving blood. - Current Medication List Current Medications: Active Medications Chlorhexidine Gluconate (Hibiclens For Decolonization -) 1 applic TP HS [facility] Last Admin: 05/17/17 00:52 Dose: 1 applic Pantoprazole Sodium 80 mg/ (Sodium Chloride) 100 mls @ 10 mls/hr IVPB Q10H [facility] PRN Reason: 8 MG/HR Last Admin: 05/17/17 05:40 Dose: 10 mls/hr Sodium Chloride (Normal Saline -) 1,000 mls @ 100 mls/hr IV ASDIR [facility] Last Admin: 05/17/17 00:53 Dose: 100 mls/hr Mupirocin (Bactroban Ointment (For Decolonization) -) 1 applic NS BID [facility] Stop: 05/21/17 21:59 Last Admin: 05/17/17 10:29 Dose: 1 applic Sucralfate (Carafate Oral Suspension -) 1 gm PO ACHS [facility] Last Admin: 05/17/17 10:28 Dose: 1 gm - Objective Vital Signs: Vital Signs Temperature 99.6 F 05/17/17 10:00 Pulse Rate 70 05/17/17 10:00 Respiratory Rate 18 05/17/17 10:00 Blood Pressure 122/86 05/17/17 10:00 O2 Sat by Pulse Oximetry (%) 100 05/16/17 21:00 Labs: CBC, BMP 05/17/17 05:10 05/17/17 05:10 INR, PTT INR 1.12 (0.82-1.09) 05/16/17 06:03 Problem List - Problems (1) Duodenal ulcer Code(s): K26.9 - DUODENAL ULCER, UNSP ACUTE OR CHRONIC, W/O HEMOR OR PERF (2) GI bleed Code(s): K92.2 - GASTROINTESTINAL HEMORRHAGE, UNSPECIFIED Qualifiers: GI bleed type/associated pathology: unspecified gastrointestinal hemorrhage type Qualified Code(s): K92.2 - Gastrointestinal hemorrhage, unspecified Assessment/Plan Actively bleeding duodenal ulcer in a dificult location, poorly amendable to clipping was found. S/p EGD with succesful control of bleeding. Drop in hemoglobin overnight likely represents equilibration, however if continues to decrease, with melanotic, crampy diarrhea, a repeat EGD, or IR for embolization will be warranted. This was discussed with the patient. Clear diet today close monitoring continue PPI and carafate
[2017-05-17 17:39] LABS: BASO % 0.9 % (0-2.0); EOS % 1.9 % (0-4.5); HEMATOCRIT 24.6 % (35.4-49); HEMOGLOBIN 8.3 GM/dL (11.7-16.9); MCH 29.7 pg (25.7-33.7); MCHC 33.7 g/dl (32.0-35.9); MEAN CELL VOLUME 88.1 fl (80-96); MEAN PLT VOLUME 8.4 fl (7.5-11.1); MONO % 7.6 % (3.8-10.2); NEUT % 59.6 % (42.8-82.8); PLATELET COUNT 106 K/MM3 (134-434); RBC 2.79 M/mm3 (4.00-5.60); RDW 14.8 % (11.9-15.9); WHITE BLOOD COUNT 5.7 K/mm3 (4.0-10.0)
--- NOTE | 2017-05-17 17:50 | PN ---
Teaching Attending Note Name of Resident: Sabrina Flores ATTENDING PHYSICIAN STATEMENT I saw and evaluated the patient. I reviewed the resident's note and discussed the case with the resident. I agree with the resident's findings and plan as documented. SUBJECTIVE: no abd pain , smith sno fever or chills, one black BM yesterday OBJECTIVE: NAD , AAOX3, pale MM and conjunctivae. CV: RRR LUngs : CTAB Abd: obese, soft, NT, ND , NL BS Ext: no edema , varicose veins. DP 2+ b/l ASSESSMENT AND PLAN: 56 y/o gentleman with h/o HTN, upper GI bleed from a PUD and thoracic disk bulge who presented with melena and was found to have anemia. 1- Acute blood loss anemia. due to bleeding duodDENAL uLCER - S/P 4 UNITS OF rbc , hb 8.3 - CONT ppi GTT - CLEARS - CHEK hB Q 6 HR , TRANSFUSE FOR hB < 7 . 2- HTN: cont to hold norvasc 3- Alcohol dependence: monitor for any withdrawal sx. Critical Care Total Critical Care Time (in minutes): 35 Critical Care Statement: The care of this patient involved high complexity decision making to prevent further life threatening deterioration of the patient 's condition and/or to evaluate & treat vital organ system(s) failure or risk of failure.
[2017-05-17 21:39] LABS: BASO % 0.8 % (0-2.0); EOS % 2.4 % (0-4.5); HEMATOCRIT 24.5 % (35.4-49); HEMOGLOBIN 8.1 GM/dL (11.7-16.9); MCH 29.2 pg (25.7-33.7); MCHC 33.2 g/dl (32.0-35.9); MEAN CELL VOLUME 87.9 fl (80-96); MEAN PLT VOLUME 7.9 fl (7.5-11.1); MONO % 8.6 % (3.8-10.2); NEUT % 60.2 % (42.8-82.8); PLATELET COUNT 107 K/MM3 (134-434); RBC 2.79 M/mm3 (4.00-5.60); RDW 15.2 % (11.9-15.9); WHITE BLOOD COUNT 5.9 K/mm3 (4.0-10.0)
[2017-05-18] MEDS: PANTOPRAZOLE SODIUM 80 MG in SODIUM CHLORIDE 100 ML IVPB SCH ×6 (01:00→22:45)
[2017-05-18] MEDS: SODIUM CHLORIDE 1,000 ML IV SCH (03:00)
[2017-05-18] MEDS ORDERED: PT OWN MED DRAWER 7, Y5N ONE ×3 (06:25→21:58)
[2017-05-18 06:33] LABS: BASO % 0.9 % (0-2.0); EOS % 3.2 % (0-4.5); HEMATOCRIT 23.8 % (35.4-49); HEMOGLOBIN 7.9 GM/dL (11.7-16.9); LYMPH % 30.3 % (8-40); MCH 29.4 pg (25.7-33.7); MCHC 33.4 g/dl (32.0-35.9); MEAN CELL VOLUME 87.9 fl (80-96); MEAN PLT VOLUME 8.4 fl (7.5-11.1); NEUT % 56.6 % (42.8-82.8); PLATELET COUNT 108 K/MM3 (134-434); RDW 15.1 % (11.9-15.9); WHITE BLOOD COUNT 4.7 K/mm3 (4.0-10.0)
[2017-05-18 06:57] LABS: ALBUMIN 2.6 g/dl (3.4-5.0); ANION GAP 10 (8-16); BLOOD UREA NITROGEN 13 mg/dL (7-18); CALCIUM 7.7 mg/dL (8.5-10.1); CHLORIDE 111 mmol/L (98-107); CO2 24 mmol/L (21-32); GLUCOSE,RANDOM 94 mg/dL (74-106); POTASSIUM 3.5 mmol/L (3.5-5.1); SODIUM 145 mmol/L (136-145)
[2017-05-18 07:01] LABS: ALK PHOS 49 U/L (45-117); BILIRUBIN,TOTAL 0.4 mg/dL (0.2-1.0); CREATININE 0.7 mg/dL (0.7-1.3); SGOT/AST 20 U/L (15-37); SGPT/ALT 29 U/L (12-78); TOT PROT 4.7 g/dl (6.4-8.2)
[2017-05-18] MEDS: SUCRALFATE 1 GM/10 ML UNIT DOSE CUPS PO SCH ×3 (08:22→21:25)
--- NOTE | 2017-05-18 08:32 | PN ---
Teaching Attending Note Name of Resident: Randall Flanagan ATTENDING PHYSICIAN STATEMENT I saw and evaluated the patient. I reviewed the resident's note and discussed the case with the resident. I agree with the resident's findings and plan as documented. SUBJECTIVE: no abd pain, s,all black BMs over night , no fever or chills. no light headedness OBJECTIVE: NAD , AAOX3, CV: RRR LUngs : CTAB Abd: obese, soft, NT, ND , NL BS Ext: no edema , varicose veins. DP 2+ b/l ASSESSMENT AND PLAN: 56 y/o gentleman with h/o HTN, upper GI bleed from a PUD and thoracic disk bulge who presented with melena and was found to have anemia. 1- Acute blood loss anemia. due to bleeding duodenal ulcer - Hb 7.9 after 4 untis of RBCs . will repeat HB today -cont PPI , might be able to switch to IV PPI if Hb remains stable - advance diet to full liquids - transfuse if Hb < 7 2- HTN: cont to hold norvasc 3- Alcohol dependence: monitor for any withdrawal sx. Transfer to floor
--- NOTE | 2017-05-18 09:19 | PN ---
Progress Note (short form) - Note Progress Note: Patient seen and examined in the ICU. Awake and alert. Still with dark. Denies abdominal pain. Denies CP or SOB. Intake & Output 05/15/17 05/16/17 05/17/17 05/18/17 23:59 23:59 23:59 23:59 Intake Total 1890 2320 1070 Output Total 2900 1250 Balance -1010 1070 1070 Weight 280 lb 295 lb 298 lb Last Vital Signs Temp Pulse Resp BP Pulse Ox 97.9 F 72 22 121/54 95 05/18/17 08:00 05/18/17 08:00 05/18/17 08:00 05/18/17 08:00 05/18/17 08:27 Active Medications Chlorhexidine Gluconate (Hibiclens For Decolonization -) 1 applic TP HS [facility] Last Admin: 05/17/17 21:17 Dose: 1 applic Pantoprazole Sodium 80 mg/ (Sodium Chloride) 100 mls @ 10 mls/hr IVPB Q10H [facility] PRN Reason: 8 MG/HR Last Admin: 05/18/17 01:00 Dose: 10 mls/hr Sodium Chloride (Normal Saline -) 1,000 mls @ 100 mls/hr IV ASDIR [facility] Last Admin: 05/18/17 03:00 Dose: 100 mls/hr Mupirocin (Bactroban Ointment (For Decolonization) -) 1 applic NS BID [facility] Stop: 05/21/17 21:59 Last Admin: 05/17/17 21:17 Dose: 1 applic Sucralfate (Carafate Oral Suspension -) 1 gm PO ACHS [facility] Last Admin: 05/18/17 08:22 Dose: 1 gm OBJECTIVE: Gen: awake alert, no acute distress HEENT: small abrasion to L lateral eye brow, EOMI CV: regular rhythm, tachy. Lungs : Clear Abd: obese, soft, NT, ND , NL BS Ext: no edema , varicose veins. DP 2+ b/l Neuro: non-focal, no tremor Laboratory Results - last 24 hr 05/16/17 05/17/17 05/17/17 06:32 08:20 16:55 WBC 5.7 RBC 2.79 L D Hgb 8.3 L D Hct 24.6 L D MCV 88.1 MCH 29.7 MCHC 33.7 RDW 14.8 Plt Count 106 L MPV 8.4 Neutrophils % 59.6 Lymphocytes % 30.0 Monocytes % 7.6 Eosinophils % 1.9 D Basophils % 0.9 Sodium Potassium Chloride Carbon Dioxide Anion Gap BUN Creatinine Creat Clearance w eGFR Random Glucose Calcium Total Bilirubin AST ALT Alkaline Phosphatase Total Protein Albumin Blood Type O POSITIVE O POSITIVE Antibody Screen Negative Crossmatch See Detail 05/17/17 05/18/17 05/18/17 21:33 06:15 06:15 WBC 5.9 4.7 RBC 2.79 L 2.70 L Hgb 8.1 L 7.9 L Hct 24.5 L 23.8 L MCV 87.9 87.9 MCH 29.2 29.4 MCHC 33.2 33.4 RDW 15.2 15.1 Plt Count 107 L 108 L MPV 7.9 8.4 Neutrophils % 60.2 56.6 Lymphocytes % 28.0 30.3 Monocytes % 8.6 9.0 Eosinophils % 2.4 3.2 Basophils % 0.8 0.9 Sodium 145 Potassium 3.5 Chloride 111 H Carbon Dioxide 24 Anion Gap 10 BUN 13 D Creatinine 0.7 Creat Clearance w eGFR > 60 Random Glucose 94 Calcium 7.7 L Total Bilirubin 0.4 D AST 20 D ALT 29 D Alkaline Phosphatase 49 Total Protein 4.7 L Albumin 2.6 L Blood Type Antibody Screen Crossmatch ASSESSMENT/PLAN: Acute GI bleed due to Peptic ulcer disease/Duodenal Ulcer Acute anemia S/P EGD with ulcer injected and clipped NSAID/ASA use -Normal transfusion thresholds, Hgb < 7, Plts < 50, INR >1.5 -PPI -maintain adequate access -monitor for ETOH withdrawal -sulculfrate -Clears, advance per GI -SCDs Dr Feliz Critical care time spent in reviewing chart, evaluating patient and formulating plan - 36 minutes.
--- NOTE | 2017-05-18 13:56 | PN ---
Physical Exam: SUBJECTIVE: Patient seen and examined at bedside. No new complaints. No overnight events. No signs of active bleeding. Denies CP,[place], SOB abdominal pain , nausea, vomiting or diarrhea. OBJECTIVE: Vital Signs Period Temp Pulse Resp BP Sys/Alas Pulse Ox Last 24 Hr 97.9 F-101.3 F 71-106 16-26 115-136/30-69 95 GENERAL: AAOx3 . NAD HEAD:NC/AT EYES: PERRL, EOMI ENT:moist mucous membranes. NECK: supple, no jvd LUNGS: CTAB, no wheezing or rhonchi HEART: RRR, No m/g/r ABDOMEN: Soft,obese, nontender, nondistended, normoactive bowel sounds, no guarding, no rebound, no hepatosplenomegaly, no masses. EXTREMITIES: 2+ pulses, warm, well-perfused, vericose veins. no edema. NEUROLOGICAL: Cranial nerves II through XII grossly intact. Normal speech, gait not observed. PSYCH: Normal mood, normal affect. SKIN: Warm, dry, normal turgor, no rashes or lesions noted Laboratory Results - last 24 hr 05/17/17 05/17/17 05/17/17 05:10 16:55 21:33 WBC 5.7 5.9 RBC 2.79 L D 2.79 L Hgb 8.3 L D 8.1 L Hct 24.6 L D 24.5 L MCV 88.1 87.9 MCH 29.7 29.2 MCHC 33.7 33.2 RDW 14.8 15.2 Plt Count 106 L 107 L MPV 8.4 7.9 Neutrophils % 59.6 60.2 Lymphocytes % 30.0 28.0 Monocytes % 7.6 8.6 Eosinophils % 1.9 D 2.4 Basophils % 0.9 0.8 Sodium Potassium Chloride Carbon Dioxide Anion Gap BUN Creatinine Creat Clearance w eGFR Random Glucose Hemoglobin A1c % 5.2 Calcium Total Bilirubin AST ALT Alkaline Phosphatase Total Protein Albumin 05/18/17 05/18/17 06:15 06:15 WBC 4.7 RBC 2.70 L Hgb 7.9 L Hct 23.8 L MCV 87.9 MCH 29.4 MCHC 33.4 RDW 15.1 Plt Count 108 L MPV 8.4 Neutrophils % 56.6 Lymphocytes % 30.3 Monocytes % 9.0 Eosinophils % 3.2 Basophils % 0.9 Sodium 145 Potassium 3.5 Chloride 111 H Carbon Dioxide 24 Anion Gap 10 BUN 13 D Creatinine 0.7 Creat Clearance w eGFR > 60 Random Glucose 94 Hemoglobin A1c % Calcium 7.7 L Total Bilirubin 0.4 D AST 20 D ALT 29 D Alkaline Phosphatase 49 Total Protein 4.7 L Albumin 2.6 L Active Medications Generic Name Dose Route Start Last Admin Trade Name Freq PRN Reason Stop Dose Admin Chlorhexidine Gluconate 1 applic 05/16/17 22:00 05/17/17 21:17 Hibiclens For Decolonization - TP 1 applic HS [facility] Administration Pantoprazole Sodium 80 mg/ 100 mls @ 10 mls/hr 05/16/17 16:45 05/18/17 10:13 Sodium Chloride IVPB Not Given Q10H [facility] 8 MG/HR Sodium Chloride 1,000 mls @ 100 mls/hr 05/16/17 15:27 05/18/17 03:00 Normal Saline - IV 100 mls/hr ASDIR [facility] Administration Mupirocin 1 applic 05/16/17 22:00 05/17/17 21:17 Bactroban Ointment (For Decolonization) - NS 05/21/17 21:59 1 applic BID [facility] Administration Sucralfate 1 gm 05/16/17 16:30 05/18/17 11:03 Carafate Oral Suspension - PO 1 gm ACHS [facility] Administration ASSESSMENT/PLAN: 56 y/o gentleman with h/o HTN, upper GI bleed from a PUD admitted for acute GI bleed. DISPO: can be transferred to MED/[facility]UR[facility] Problem List - Problems (1) GI bleed Assessment/Plan: S/P EGD with clipping of duodenal ulcer. * He has recieved 4 units PRBC and Hgb 7.9 * GI consult appreciated will continue PPI drip and full liquid diet. * Will switch to IV PPI if Hgb remains stable. * Advance diet as tolerated. * transfuse if Hgb <7 (2) Duodenal ulcer (3) HTN (hypertension) Assessment/Plan: Will continue to hold norvasc. Code(s): I10 - ESSENTIAL (PRIMARY) HYPERTENSION Qualifiers: Hypertension type: essential hypertension Qualified Code(s): I10 - Essential (primary) hypertension (4) Alcohol dependence Assessment/Plan: Will continue to monitor for signs of withdrawal. (5) DVT prophylaxis Assessment/Plan: contraindicated because of bleeding. Visit type - Emergency Visit Emergency Visit: Yes ED Registration Date: 05/16/17 Care time: The patient presented to the Emergency Department on the above date and was hospitalized for further evaluation of their emergent condition. - New Patient This patient is new to me today: Yes Date on this admission: 05/18/17 - Critical Care Critical Care patient: Yes Total Critical Care Time (in minutes): 45 Critical Care Statement: The care of this patient involved high complexity decision making to prevent further life threatening deterioration of the patient 's condition and/or to evaluate & treat vital organ system(s) failure or risk of failure.
--- NOTE | 2017-05-18 14:13 | PN ---
GI Progress Note Subjective: GI NOte( covering Dr Delgado) : Had only one episode of melena today. Hb stable. No pain or hematemesis. Discussed case wit Dr. Larry. - Objective Vital Signs: Vital Signs Temperature 101.3 F H 05/18/17 10:00 Pulse Rate 106 H 05/18/17 10:00 Respiratory Rate 26 H 05/18/17 10:00 Blood Pressure 115/56 05/18/17 10:00 O2 Sat by Pulse Oximetry (%) 95 05/18/17 08:27 Laboratory Tests 05/16/17 05/17/17 05/17/17 15:00 05:10 16:55 Hgb 7.6 L D 6.2 L* D 8.3 L D BUN Creatinine Total Bilirubin 05/17/17 05/18/17 05/18/17 21:33 06:15 06:15 Hgb 8.1 L 7.9 L BUN 13 D Creatinine 0.7 Total Bilirubin 0.4 D Constitutional: No Distress HENT: Yes: Normocephalic ...Auscultate: Yes: Normoactive Bowel Sounds ...Palpate: Yes: Soft, Other (nontender) Labs: CBC, BMP 05/18/17 06:15 05/18/17 06:15 INR, PTT INR 1.12 (0.82-1.09) 05/16/17 06:03 Assessment/Plan PPI drip Full liquids Watch for DTs Problem List - Problems (1) Alcohol dependence Assessment/Plan: I discussed the need to abstain and allow for ulcer healing Code(s): F10.20 - ALCOHOL DEPENDENCE, UNCOMPLICATED Qualifiers: Substance use status: unspecified alcohol-induced disorder Qualified Code(s ): F10.29 - Alcohol dependence with unspecified alcohol-induced disorder (2) Duodenal ulcer Assessment/Plan: The bleeding appears to have been controlled by Dr. Delgado's EGD efforts. He remains at risk for rebleeding. Will therefore continue PPI drip and supplement with antacids. Will allow full liquids. Code(s): K26.9 - DUODENAL ULCER, UNSP ACUTE OR CHRONIC, W/O HEMOR OR PERF (3) GI bleed Code(s): K92.2 - GASTROINTESTINAL HEMORRHAGE, UNSPECIFIED Qualifiers: GI bleed type/associated pathology: unspecified gastrointestinal hemorrhage type Qualified Code(s): K92.2 - Gastrointestinal hemorrhage, unspecified
[2017-05-18 17:41] LABS: HEMATOCRIT 25.2 % (35.4-49); HEMOGLOBIN 8.3 GM/dL (11.7-16.9); MCH 28.9 pg (25.7-33.7); MEAN CELL VOLUME 87.5 fl (80-96); MEAN PLT VOLUME 8.2 fl (7.5-11.1); PLATELET COUNT 107 K/MM3 (134-434); RBC 2.88 M/mm3 (4.00-5.60); RDW 15.1 % (11.9-15.9); WHITE BLOOD COUNT 4.8 K/mm3 (4.0-10.0)
[2017-05-18] MEDS: MAG HYDROX/AL HYDROX/SIMETH 30 ML UNIT-DOSE CUP PO SCH (18:56)
[2017-05-18] MEDS: CHLORHEXIDINE GLUCONATE 4% CLEANSER FOR DECOLONIZATION TP SCH (21:25)
[2017-05-18] MEDS ORDERED: MUPIROCIN 2% TOPICAL OINTMENT FOR DECOLONIZATION NS SCH (22:00)
[2017-05-18 23:47] LABS: HEMOGLOBIN 8.4 GM/dL (11.7-16.9); MCH 29.5 pg (25.7-33.7); MCHC 33.5 g/dl (32.0-35.9); MEAN CELL VOLUME 88.2 fl (80-96); MEAN PLT VOLUME 8.3 fl (7.5-11.1); PLATELET COUNT 116 K/MM3 (134-434); RBC 2.83 M/mm3 (4.00-5.60); RDW 14.9 % (11.9-15.9); WHITE BLOOD COUNT 4.8 K/mm3 (4.0-10.0)
[2017-05-19] MEDS: PANTOPRAZOLE SODIUM 80 MG in SODIUM CHLORIDE 100 ML IVPB SCH ×4 (00:45→13:46)
[2017-05-19] MEDS: MAG HYDROX/AL HYDROX/SIMETH 30 ML UNIT-DOSE CUP PO SCH ×5 (03:54→23:26)
[2017-05-19] MEDS: SUCRALFATE 1 GM/10 ML UNIT DOSE CUPS PO SCH ×5 (06:21→21:12)
[2017-05-19] MEDS: MUPIROCIN 2% TOPICAL OINTMENT FOR DECOLONIZATION NS SCH (07:35)
[2017-05-19 08:15] LABS: ALBUMIN 2.6 g/dl (3.4-5.0); CHLORIDE 110 mmol/L (98-107); POTASSIUM 3.5 mmol/L (3.5-5.1); SODIUM 144 mmol/L (136-145)
[2017-05-19 08:25] LABS: ALK PHOS 55 U/L (45-117); ANION GAP 7 (8-16); BILIRUBIN,DIRECT 0.2 mg/dL (0.0-0.2); BILIRUBIN,TOTAL 0.5 mg/dL (0.2-1.0); BLOOD UREA NITROGEN 7 mg/dL (7-18); CALCIUM 7.8 mg/dL (8.5-10.1); CO2 27 mmol/L (21-32); CREATININE 0.6 mg/dL (0.7-1.3); GLUCOSE,RANDOM 98 mg/dL (74-106); SGOT/AST 17 U/L (15-37); SGPT/ALT 30 U/L (12-78)
[2017-05-19 08:31] LABS: BASO % 0.8 % (0-2.0); EOS % 3.4 % (0-4.5); HEMATOCRIT 24.6 % (35.4-49); HEMOGLOBIN 8.2 GM/dL (11.7-16.9); LYMPH % 30.8 % (8-40); MCH 29.3 pg (25.7-33.7); MCHC 33.5 g/dl (32.0-35.9); MEAN CELL VOLUME 87.5 fl (80-96); MEAN PLT VOLUME 8.4 fl (7.5-11.1); MONO % 10.2 % (3.8-10.2); NEUT % 54.8 % (42.8-82.8); PLATELET COUNT 118 K/MM3 (134-434); RBC 2.81 M/mm3 (4.00-5.60); RDW 14.8 % (11.9-15.9); WHITE BLOOD COUNT 4.1 K/mm3 (4.0-10.0)
[2017-05-19 12:33] LABS: RETICULOCYTES 5.28 % (0.5-1.5)
--- NOTE | 2017-05-19 15:24 | PN ---
Progress Note (short form) - Note Progress Note: Subjective: no fever or chills. has no abd pain . no BM today. black BM yesterday Objective: Vital Signs: Last Vital Signs Temp Pulse Resp BP Pulse Ox 98.5 F 67 18 115/71 97 05/19/17 09:37 05/19/17 09:37 05/19/17 09:37 05/19/17 09:37 05/19/17 09:00 Laboratory Results - last 24 hr 05/16/17 05/18/17 05/18/17 06:03 17:16 23:00 WBC 4.8 4.8 RBC 2.88 L 2.83 L Hgb 8.3 L 8.4 L Hct 25.2 L 25.0 L MCV 87.5 88.2 MCH 28.9 29.5 MCHC 33.0 33.5 RDW 15.1 14.9 Plt Count 107 L 116 L MPV 8.2 8.3 Neutrophils % Lymphocytes % Monocytes % Eosinophils % Basophils % Retic Count Sodium Potassium Chloride Carbon Dioxide Anion Gap BUN Creatinine Random Glucose Calcium Ferritin Total Bilirubin Direct Bilirubin AST ALT Alkaline Phosphatase Total Protein Albumin Blood Type O POSITIVE Antibody Screen Negative Crossmatch See Detail 05/19/17 05/19/17 05/19/17 06:45 06:45 06:45 WBC 4.1 RBC 2.81 L Hgb 8.2 L Hct 24.6 L MCV 87.5 MCH 29.3 MCHC 33.5 RDW 14.8 Plt Count 118 L MPV 8.4 Neutrophils % 54.8 Lymphocytes % 30.8 Monocytes % 10.2 Eosinophils % 3.4 Basophils % 0.8 Retic Count 5.28 H Sodium 144 Potassium 3.5 Chloride 110 H Carbon Dioxide 27 Anion Gap 7 L BUN 7 D Creatinine 0.6 L Random Glucose 98 Calcium 7.8 L Ferritin 72.784 Total Bilirubin 0.5 D Direct Bilirubin 0.2 AST 17 ALT 30 Alkaline Phosphatase 55 Total Protein 5.0 L Albumin 2.6 L Blood Type Antibody Screen Crossmatch Physical Exam: NAD , AAOX3, CV: RRR Lungs: CTAB Abd: obese, soft, NT, ND , NL BS Ext: no edema , varicose veins. DP 2+ b/l ASSESSMENT AND PLAN: 56 y/o gentleman with h/o HTN, upper GI bleed from a PUD and thoracic disk bulge who presented with melena and was found to have anemia. 1- Acute blood loss anemia. due to bleeding duodenal ulcer -stable HB , will repeat at 8 pm -cont PPI gtt - cont full liquid diet - transfuse if Hb < 7, or higher if large melena 2- HTN: cont to hold norvasc 3- Alcohol dependence: monitor for any withdrawal sx. HLOC Visit type - Emergency Visit Emergency Visit: Yes ED Registration Date: 05/16/17 Care time: The patient presented to the Emergency Department on the above date and was hospitalized for further evaluation of their emergent condition. - New Patient This patient is new to me today: No - Critical Care Critical Care patient: No
--- NOTE | 2017-05-19 17:41 | PN ---
GI Progress Note Subjective: GI NOte( covering Dr Delgado): No BM today. Tolerating full liquids, No pain - Objective Vital Signs: Vital Signs Temperature 97.7 F 05/19/17 15:21 Pulse Rate 87 05/19/17 15:21 Respiratory Rate 18 05/19/17 15:21 Blood Pressure 111/73 05/19/17 15:21 O2 Sat by Pulse Oximetry (%) 97 05/19/17 09:00 Laboratory Tests 05/18/17 05/18/17 05/19/17 17:16 23:00 06:45 Hgb 8.3 L 8.4 L 8.2 L Constitutional: No Distress ...Auscultate: Yes: Normoactive Bowel Sounds ...Palpate: Yes: Soft, Other (nontender) Labs: CBC, BMP 05/19/17 06:45 05/19/17 06:45 INR, PTT INR 1.12 (0.82-1.09) 05/16/17 06:03 Assessment/Plan PPI drip trial of soft diet in AM No signs of DTs Problem List - Problems (1) Alcohol dependence Code(s): F10.20 - ALCOHOL DEPENDENCE, UNCOMPLICATED Qualifiers: Substance use status: unspecified alcohol-induced disorder Qualified Code(s ): F10.29 - Alcohol dependence with unspecified alcohol-induced disorder (2) Duodenal ulcer Assessment/Plan: No sign of persistent bleeding. Will continue PPI drip and supplement with antacids. Will allow trial of soft diet in the AM. Code(s): K26.9 - DUODENAL ULCER, UNSP ACUTE OR CHRONIC, W/O HEMOR OR PERF (3) GI bleed Code(s): K92.2 - GASTROINTESTINAL HEMORRHAGE, UNSPECIFIED Qualifiers: GI bleed type/associated pathology: unspecified gastrointestinal hemorrhage type Qualified Code(s): K92.2 - Gastrointestinal hemorrhage, unspecified
[2017-05-19 20:23] LABS: HEMATOCRIT 25.7 % (35.4-49); HEMOGLOBIN 8.4 GM/dL (11.7-16.9); MCH 29.3 pg (25.7-33.7); MCHC 32.8 g/dl (32.0-35.9); MEAN CELL VOLUME 89.2 fl (80-96); MEAN PLT VOLUME 7.9 fl (7.5-11.1); PLATELET COUNT 125 K/MM3 (134-434); RBC 2.88 M/mm3 (4.00-5.60); RDW 15.5 % (11.9-15.9); WHITE BLOOD COUNT 4.6 K/mm3 (4.0-10.0)
[2017-05-19] MEDS: CHLORHEXIDINE GLUCONATE 4% CLEANSER FOR DECOLONIZATION TP SCH (21:12)
[2017-05-20] MEDS: MAG HYDROX/AL HYDROX/SIMETH 30 ML UNIT-DOSE CUP PO SCH ×3 (06:07→18:19)
[2017-05-20] MEDS: SUCRALFATE 1 GM/10 ML UNIT DOSE CUPS PO SCH ×4 (06:07→21:56)
--- NOTE | 2017-05-20 08:28 | PN ---
Physical Exam: SUBJECTIVE: Patient seen and examined. Feels well. Tolerated soft diet for breakfast. Last BM 2 days ago (black). No abdominal pain, fever, chills, n/v. OBJECTIVE: Vital Signs Period Temp Pulse Resp BP Sys/Alas Pulse Ox Last 24 Hr 97.7 F-98.9 F 64-87 18-18 111-139/64-77 97-97 GENERAL: lying comfortably in bed, nad, aaox3 EYES: sclera anicteric, conjunctiva clear ENT: MMM LUNGS: CTAB HEART: rrr, normal s1/s2, no m/r/g ABDOMEN: protuberant, soft, ntnd, normoactive BS LOWER EXTREMITIES: 2+ DP pulses, wwp, varicose veins, no edema CBC, BMP 05/20/17 07:45 Active Medications Al Hydroxide/Mg Hydroxide (Mylanta Oral Suspension -) 30 ml PO Q6HPO [facility] Last Admin: 05/20/17 12:10 Dose: 30 ml Amlodipine Besylate (Norvasc -) 5 mg PO DAILY [facility] Last Admin: 05/20/17 12:10 Dose: 5 mg Chlorhexidine Gluconate (Hibiclens For Decolonization -) 1 applic TP HS [facility] Last Admin: 05/19/17 21:12 Dose: Not Given Pantoprazole Sodium (Protonix -) 40 mg PO BID [facility] Sucralfate (Carafate Oral Suspension -) 1 gm PO ACHS [facility] Last Admin: 05/20/17 12:10 Dose: Not Given ASSESSMENT/PLAN: 56yo man with PMH of HTN, thoracic disk bulge and remote UGIB who p/w syncope in the setting of several days of melena and found to have Hgb 6.7. #duodenal ulcer POD4 s/p EGD w/ clips and epi -GI following. -PPI gtt -> 40mg PO BID -Maalox 30cc Q6H -Carafate 1gm ACHS -send H. pylori stool Ag #Acute blood loss anemia s/p 4U PRBC, stable, no active signs of bleeding -Trend H&H, transfuse <7 Hgb #HTN: start 5mg Norvasc (home dose 10mg) #EtOH dependence: monitor for any withdrawal sx. #FEN: PO hydration / lytes wnl / Soft diet, advance per GI #PPX -DVT - SCD's -GI - protonix 40mg BID #DISPO: continue M/S, anticipate d/c in next 24h-48h FULL code d/w Dr. Laron Flores MD PGY1 - Internal Medicine Visit type - Emergency Visit Emergency Visit: No - New Patient This patient is new to me today: No - Critical Care Critical Care patient: No
[2017-05-20 09:01] LABS: HEMATOCRIT 26.5 % (35.4-49); HEMOGLOBIN 8.7 GM/dL (11.7-16.9); MCH 29.1 pg (25.7-33.7); MCHC 32.9 g/dl (32.0-35.9); MEAN CELL VOLUME 88.5 fl (80-96); MEAN PLT VOLUME 8.2 fl (7.5-11.1); PLATELET COUNT 133 K/MM3 (134-434); RBC 2.99 M/mm3 (4.00-5.60); WHITE BLOOD COUNT 4.4 K/mm3 (4.0-10.0)
[2017-05-20] MEDS: PANTOPRAZOLE SODIUM 80 MG in SODIUM CHLORIDE 100 ML IVPB SCH (11:18)
[2017-05-20] MEDS: amLODIPine BESYLATE 5 MG TABLET (FP) PO SCH (12:10)
--- NOTE | 2017-05-20 12:13 | PN ---
Teaching Attending Note Name of Resident: Dolly Hoang ATTENDING PHYSICIAN STATEMENT I saw and evaluated the patient. I reviewed the resident's note and discussed the case with the resident. I agree with the resident's findings and plan as documented. SUBJECTIVE: no fever or chills, no abd pain, NO BM yesterday or this am . denies Abd pain OBJECTIVE: NAD , AAOX3, CV: RRR Lungs: CTAB Abd: obese, soft, NT, ND , NL BS Ext: no edema , varicose veins. DP 2+ b/l ASSESSMENT AND PLAN: 56 y/o gentleman with h/o HTN, upper GI bleed from a PUD and thoracic disk bulge who presented with melena and was found to have anemia. 1- Acute blood loss anemia. due to bleeding duodenal ulcer - stable HB - will d/w Gi if PPI gtt can be switched to PO - tolerated soft diet today - transfuse if Hb < 7, or higher if large melena - unfortunately, HP stool Ag was not done. this needs to be done here if possible or as outpt as bx were not taken during EGD - repeat EGD in 3 months . 2- HTN: resume Norvasc 3- Alcohol dependence: No withdrawal sx. If able to switch to PO PPI , can dc home . will d/w GI .
--- NOTE | 2017-05-20 16:47 | PN ---
GI Progress Note Subjective: GI NOte( covering Dr Delgado) : Tolerating solids. Still having black stool ( once today) - Objective Vital Signs: Vital Signs Temperature 97.8 F 05/20/17 10:00 Pulse Rate 73 05/20/17 14:40 Respiratory Rate 22 05/20/17 14:40 Blood Pressure 118/66 05/20/17 14:40 O2 Sat by Pulse Oximetry (%) 97 05/20/17 09:00 Laboratory Tests 05/19/17 05/20/17 20:05 07:45 Hgb 8.4 L 8.7 L Constitutional: No Distress ...Auscultate: Yes: Normoactive Bowel Sounds ...Palpate: Yes: Soft, Other (nontender) Labs: CBC, BMP 05/20/17 07:45 05/19/17 06:45 INR, PTT INR 1.12 (0.82-1.09) 05/16/17 06:03 Assessment/Plan Stop PPI drip No signs of DTs Dr Delgado will return tomorrow Problem List - Problems (1) Alcohol dependence Assessment/Plan: Reiterated the need for alcohol abstinence Code(s): F10.20 - ALCOHOL DEPENDENCE, UNCOMPLICATED Qualifiers: Substance use status: unspecified alcohol-induced disorder Qualified Code(s ): F10.29 - Alcohol dependence with unspecified alcohol-induced disorder (2) Duodenal ulcer Code(s): K26.9 - DUODENAL ULCER, UNSP ACUTE OR CHRONIC, W/O HEMOR OR PERF (3) GI bleed Assessment/Plan: Resolved duodenal ulcer bleed. Can stop PPI drip., Discussed with resident Code(s): K92.2 - GASTROINTESTINAL HEMORRHAGE, UNSPECIFIED Qualifiers: GI bleed type/associated pathology: unspecified gastrointestinal hemorrhage type Qualified Code(s): K92.2 - Gastrointestinal hemorrhage, unspecified
[2017-05-20] MEDS: CHLORHEXIDINE GLUCONATE 4% CLEANSER FOR DECOLONIZATION TP SCH (21:56)
[2017-05-20] MEDS: PANTOPRAZOLE 40 MG TABLET (FP) PO SCH (21:56)
[2017-05-21] MEDS: MAG HYDROX/AL HYDROX/SIMETH 30 ML UNIT-DOSE CUP PO SCH ×3 (00:01→12:48)
[2017-05-21] MEDS: SUCRALFATE 1 GM/10 ML UNIT DOSE CUPS PO SCH ×2 (06:05→11:40)
[2017-05-21 06:06] LABS: SERUM IRON SATURATION 12 % (15-55); TOTAL IRON BINDING CAPACITY 262 ug/dL (250-450); UIBC 231 ug/dL (111-343)
[2017-05-21 08:26] LABS: HEMATOCRIT 25.8 % (35.4-49); HEMOGLOBIN 8.5 GM/dL (11.7-16.9); MCH 29.1 pg (25.7-33.7); MCHC 32.9 g/dl (32.0-35.9); MEAN CELL VOLUME 88.6 fl (80-96); MEAN PLT VOLUME 8.2 fl (7.5-11.1); PLATELET COUNT 136 K/MM3 (134-434); RBC 2.92 M/mm3 (4.00-5.60); RDW 15.4 % (11.9-15.9); WHITE BLOOD COUNT 4.3 K/mm3 (4.0-10.0)
[2017-05-21 08:52] LABS: ANION GAP 9 (8-16); BLOOD UREA NITROGEN 8 mg/dL (7-18); CALCIUM 8.3 mg/dL (8.5-10.1); CHLORIDE 108 mmol/L (98-107); CO2 26 mmol/L (21-32); CREATININE 0.7 mg/dL (0.7-1.3); GLUCOSE,RANDOM 94 mg/dL (74-106); POTASSIUM 3.7 mmol/L (3.5-5.1); SODIUM 143 mmol/L (136-145)
--- NOTE | 2017-05-21 10:58 | PN ---
Progress Note, Physician History of Present Illness: Chart reviewed. Asymptomatic, no complaints. Reports dark stools this am. Hgb stable. - Current Medication List Current Medications: Active Medications Al Hydroxide/Mg Hydroxide (Mylanta Oral Suspension -) 30 ml PO Q6HPO [facility] Last Admin: 05/21/17 06:06 Dose: 30 ml Amlodipine Besylate (Norvasc -) 5 mg PO DAILY [facility] Last Admin: 05/20/17 12:10 Dose: 5 mg Chlorhexidine Gluconate (Hibiclens For Decolonization -) 1 applic TP HS [facility] Last Admin: 05/20/17 21:56 Dose: Not Given Pantoprazole Sodium (Protonix -) 40 mg PO BID [facility] Last Admin: 05/20/17 21:56 Dose: 40 mg Sucralfate (Carafate Oral Suspension -) 1 gm PO ACHS [facility] Last Admin: 05/21/17 06:05 Dose: 1 gm - Objective Vital Signs: Vital Signs Temperature 99.5 F 05/21/17 06:00 Pulse Rate 68 05/21/17 06:00 Respiratory Rate 18 05/21/17 06:00 Blood Pressure 133/72 05/21/17 06:00 O2 Sat by Pulse Oximetry (%) 97 05/20/17 21:00 Constitutional: Yes: No Distress, Calm Eyes: Yes: Conjunctiva Clear HENT: Yes: Atraumatic Neck: Yes: Supple Cardiovascular: Yes: Regular Rate and Rhythm Respiratory: Yes: Regular Gastrointestinal: Yes: Normal Bowel Sounds, Soft, Melena. No: Rectal Bleeding, Tenderness, Tenderness, Epigastrium, Vomiting Neurological: Yes: Alert, Oriented Labs: CBC, BMP 05/21/17 06:30 05/21/17 06:30 INR, PTT INR 1.12 (0.82-1.09) 05/16/17 06:03 Abnormal Lab Results 05/16/17 05/19/17 05/21/17 06:32 06:45 06:30 RBC 2.92 L Hgb 8.5 L Hct 25.8 L Chloride Calcium Iron 31 L Iron Saturation 12 L Crossmatch See Detail 05/21/17 06:30 RBC Hgb Hct Chloride 108 H Calcium 8.3 L Iron Iron Saturation Crossmatch Problem List - Problems (1) Duodenal ulcer Code(s): K26.9 - DUODENAL ULCER, UNSP ACUTE OR CHRONIC, W/O HEMOR OR PERF (2) GI bleed Code(s): K92.2 - GASTROINTESTINAL HEMORRHAGE, UNSPECIFIED Qualifiers: GI bleed type/associated pathology: unspecified gastrointestinal hemorrhage type Qualified Code(s): K92.2 - Gastrointestinal hemorrhage, unspecified (3) Iron deficiency anemia Code(s): D50.9 - IRON DEFICIENCY ANEMIA, UNSPECIFIED Assessment/Plan Hgb has been stable w/o signs of ongoing GI bleed. Iron suppliment continue PPI, carafate Stools for H. pylori If d/c'd today, follow as op for Hgb in 1 week. ED if signs of recurrent bleeding. Discussed with the patient is detail.
[2017-05-21] MEDS: amLODIPine BESYLATE 5 MG TABLET (FP) PO SCH (11:40)
[2017-05-21] MEDS: PANTOPRAZOLE 40 MG TABLET (FP) PO SCH (11:40)
[2017-05-21 12:26] VITALS: BP 132/64; PULSE 66; TEMP 97.8
--- NOTE | 2017-05-21 18:38 | PN ---
Teaching Attending Note Name of Resident: Salomon Patterson ATTENDING PHYSICIAN STATEMENT I saw and evaluated the patient. I reviewed the resident's note and discussed the case with the resident. I agree with the resident's findings and plan as documented. SUBJECTIVE: seen this am , has no abd pain or N/V . one small black BM yesterday. OBJECTIVE: NAD , AAOX3, CV: RRR Lungs: CTAB Abd: obese, soft, NT, ND , NL BS Ext: no edema , varicose veins. DP 2+ b/l ASSESSMENT AND PLAN: 56 y/o gentleman with h/o HTN, upper GI bleed from a PUD and thoracic disk bulge who presented with melena and was found to have anemia. 1- Acute blood loss anemia. due to bleeding duodenal ulcer - stable HB. - cont PO PPI , carafate - script fr blood work as outpt in 3-4 days - f/u with GI -EGD in 3 month d/w Dr Smyth 2- HTN: Norvasc dc home
--- NOTE | 2017-05-21 22:47 | DS ---
Physical Exam: SUBJECTIVE: Patient seen and examined OBJECTIVE: Vital Signs Period Temp Pulse Resp BP Sys/Alas Pulse Ox Last 24 Hr 97.8 F-99.5 F 66-70 17-18 127-133/64-72 97 PHYSICAL EXAM GENERAL: The patient is awake, alert, and fully oriented, in no acute distress. HEAD: Normal with no signs of trauma. EYES: PERRL, extraocular movements intact, sclera anicteric, conjunctiva clear. ENT: Ears normal, nares patent, oropharynx clear without exudates, moist mucous membranes. NECK: Trachea midline, full range of motion, supple. LUNGS: Breath sounds equal, clear to auscultation bilaterally, no wheezes, no crackles, no accessory muscle use. HEART: Regular rate and rhythm, S1, S2 without murmur, rub or gallop. ABDOMEN: Soft, nontender, nondistended, normoactive bowel sounds, no guarding, no rebound, no hepatosplenomegaly, no masses. EXTREMITIES: 2+ pulses, warm, well-perfused, no edema. NEUROLOGICAL: Cranial nerves II through XII grossly intact. Normal speech, gait not observed. PSYCH: Normal mood, normal affect. SKIN: Warm, dry, normal turgor, no rashes or lesions noted. LABS Laboratory Results - last 24 hr 05/19/17 05/21/17 05/21/17 06:45 06:30 06:30 WBC 4.3 RBC 2.92 L Hgb 8.5 L Hct 25.8 L MCV 88.6 MCH 29.1 MCHC 32.9 RDW 15.4 Plt Count 136 MPV 8.2 Sodium 143 Potassium 3.7 Chloride 108 H Carbon Dioxide 26 Anion Gap 9 BUN 8 Creatinine 0.7 Random Glucose 94 Calcium 8.3 L Iron 31 L TIBC 262 Iron Saturation 12 L Hepatitis C Antibody <0.1 HOSPITAL COURSE: Date of Admission:05/16/17 Date of Discharge: 05/21/17 Discharge Summary Reason For Visit: GASTROINTESTINAL HEMORRHAGE,SYNCOPE Condition: Improved - Instructions Diet, Activity, Other Instructions: You were treated for a bleeding ulcer in your duodenum. An EGD was performed and clips were placed to stop the bleeding. You were also transfused with 4U of blood. Recommendations: -You may resume your regular diet and daily activities. Medications: -Continue taking your Norvasc 10mg daily for your high blood pressure. -Stop taking Aspirin. -Start taking Protonix 40mg twice per day. Discuss with Dr. Delgado when you should stop taking it. -Take Maalox 30mL four times per day (6 hours apart). Discuss with Dr. Delgado when you should stop taking it. -Avoid taking NSAID medications, such as Advil, Naproxen, Motrin, which can make your ulcer worse Follow-ups: -Please see Dr. Delgado (Gastroenterology) in 1 week. You need to be checked for Helicobacter pylori, a bacteria that can cause ulcers and needs to be treated with antibiotics if positive. You need a repeat endoscopy in 3 months. -You need to have blood work done in 3 days and have the results faxed to your PCP. -Make an appointment to see your PCP within 1 week for post-hospital evaluation and to ensure that your blood counts have remained stable. Referrals: Jung Delgado MD [Staff Physician] - 1 Week Disposition: HOME - Home Medications Comprehensive Discharge Medication List: Ambulatory Orders Amlodipine Besylate 10 mg PO DAILY 05/16/17 Mag Hydrox/Al Hydrox/Simeth [Mylanta Oral Suspension -] 30 ml PO Q6HPO #8 cup Miscellaneous Drug Not In Syst [Outpatient Lab Test] 1 each ASDIR #1 misc 07/07 Pantoprazole Sodium [Protonix -] 40 mg PO BID #28 tablet.ec 05/21/17 - Discharge Referral Referred to [facility] No
== END 2017-05-21 13:27 | disposition home or self-care (01) | DRG 241 ==
LOC: JER 05:28 → JERBED 06:39 → JICU 18:35 → J5S 05-18 22:02
PROVIDERS: ADMIT Internal Medicine; ATTEND Internal Medicine
PROC: 0W3P8ZZ Control Bleeding in Gastrointestinal Tract, Via Natural or Artificial Opening Endoscopic (ICD-10-PCS; 2017-05-16)
PROC: 30233N1 Transfusion of Nonautologous Red Blood Cells into Peripheral Vein, Percutaneous Approach (ICD-10-PCS; 2017-05-16)
PROC: 3E0G8GC Introduction of Other Therapeutic Substance into Upper GI, Via Natural or Artificial Opening Endoscopic (ICD-10-PCS; principal; 2017-05-16 11:30)
DX: K26.4 Chronic or unspecified duodenal ulcer with hemorrhage (principal); R55 Syncope and collapse; I10 Essential (primary) hypertension; E66.8 Other obesity; Z68.35 Body mass index [BMI] 35.0-35.9, adult; D62 Acute posthemorrhagic anemia; R00.0 Tachycardia, unspecified; M50.30 Other cervical disc degeneration, unspecified cervical region; F10.20 Alcohol dependence, uncomplicated; W18.12XA Fall from or off toilet with subsequent striking against object, initial encounter; Y93.89 Activity, other specified; Y92.091 Bathroom in other non-institutional residence as the place of occurrence of the external cause
CPT/HCPCS: 36415; 36430; 36600; 70450-TC; 71010-TC; 74020-TC; 80048; 80053; 80061; 80076; 82728; 82803; 83036; 83540; 83550; 83721; 85025; 85027; 85044; 85610; 86803; 86850; 86900; 86901; 86922; 93005; 93010; 94760; 99285-25; P9038; P9058

== ENCOUNTER 2017-06-20 07:22 | Day surgery (SDC) | payer OTHER ==
[2017-06-19 14:43] VITALS: BMI 33.7
[2017-06-20] MEDS ORDERED: LIDOCAINE HCL 2% (20ML MULTI-DOSE VIAL) NR ONE (08:03)
[2017-06-20] MEDS ORDERED: PROPOFOL 20 ML ONE ×3 (08:04)
--- NOTE | 2017-06-20 08:27 | PROC ---
Endoscopy Procedure Endoscopy procedure completed. Please see scanned procedure report.
[2017-06-20 08:39] VITALS: TEMP 98.4
[2017-06-20] MEDS ORDERED: CITRIC ACID/SODIUM CITRATE 30 ML UNIT-DOSE CUP ONE (09:01)
[2017-06-20 09:25] VITALS: BP 118/61; PULSE 67
--- NOTE | 2017-06-21 16:36 | PATH ---
Surgical Pathology Report Patient Name: BLANKA BENJAMIN [facility]. Rec. #: [id number] /Age/Gender: 1960 (Age: 57) / M Account: [id number] Location: [facility]-ENDOSCOPY Taken: 06/20/2017 Received: 06/20/2017 Reported: 06/21/2017 Physicians: Jung Delgado M.D. Specimen(s) Received POLYP SIGMOID BIOPSY Clinical History Preoperative diagnosis: Colon screening Postoperative diagnosis: Diverticulosis, sigmoid polyp Final Diagnosis SIGMOID COLON, POLYP, BIOPSY: HYPERPLASTIC POLYP(S). Electronically Signed Fidelina Duarte M.D. Gross Description Received in formalin, labeled "biopsy sigmoid polyp" are 4 [place], irregular portions of soft tissue ranging from 0.1-0.3 cm. in greatest dimension. The specimens are submitted in toto in one cassette. 06/20/201706/20/2017
== END 2017-06-20 09:26 | disposition home or self-care (01) ==
LOC: JASU-ENDO 07:22
PROVIDERS: ATTEND Internal Medicine Gastroenterology
PROC: 0DBN8ZX Excision of Sigmoid Colon, Via Natural or Artificial Opening Endoscopic, Diagnostic (ICD-10-PCS; principal; 2017-06-20 08:00)
DX: Z12.11 Encounter for screening for malignant neoplasm of colon (principal); Z86.010 Personal history of colon polyps; D12.5 Benign neoplasm of sigmoid colon; K57.30 Diverticulosis of large intestine without perforation or abscess without bleeding
CPT/HCPCS: 88305-TC

== ENCOUNTER 2017-09-01 11:21 | Emergency (ER) | payer OTHER ==
[2017-09-01 12:02] VITALS: BP 128/70; PULSE 79; TEMP 97.8; BMI 33.3
--- NOTE | 2017-09-01 12:22 | PDOC ---
History of Present Illness - General Chief Complaint: Ear Problem Stated Complaint: EAR PROBLEM Time Seen by Provider: 09/01/17 12:04 History Source: Patient Exam Limitations: No Limitations - History of Present Illness Initial Comments: 09/01/17 12:17 57-year-old male with no past medical history presents to the ED with complaints of right ear pain intermittently since last night. Patient describes the pain as intermittent with sharp sensation without radiation of pain or aggravating factors. Patient denies change in hearing, headache, dizziness, fever, chills, recent ear injury, or dental pain. Patient states took nothing for the above but placed olive oil in his ear last night as recommended by a family member. Timing/Duration: intermittent, other Severity: mild Associated Symptoms: denies: denies symptoms Past History - Travel Traveled outside of the country in the last 30 days: No - Past Medical History Allergies/Adverse Reactions: Allergies Allergy/AdvReac Type Severity Reaction Status Date / Time No Known Allergies Allergy Verified 09/01/17 12:00 Home Medications: Ambulatory Orders Amlodipine Besylate 10 mg PO DAILY 05/16/17 Omeprazole 40 mg PO DAILY 06/19/17 Anemia: No Asthma: No Cancer: No Cardiac Disorders: No CVA: No COPD: No CHF: No Dementia: No Diabetes: No GI Disorders: Yes (DUODENAL ULCER) Disorders: No HTN: Yes Liver Disease: No Seizures: No Thyroid Disease: No - Surgical History Abdominal Surgery: No Appendectomy: No Cardiac Surgery: No Cholecystectomy: No Lung Surgery: No Neurologic Surgery: No Orthopedic Surgery: No - Suicide/Smoking/Psychosocial Hx Smoking History: Unknown if ever smoked Have you smoked in the past 12 months: No Information on smoking cessation initiated: No Hx Alcohol Use: No Drug/Substance Use Hx: No Substance Use Type: None Hx Substance Use Treatment: No Patient Lives Alone: No Lives with/in: spouse/SO Review of Systems - Review of Systems Able to Perform ROS?: Yes Constitutional: No: Symptoms Reported HEENTM: Yes: Ear Pain Respiratory: No: Symptoms reported Cardiac (ROS): No: Symptoms Reported ABD/GI: No: Symptoms Reported : No: Symptoms Reported Musculoskeletal: No: Symptoms Reported Integumentary: No: Symptoms Reported Neurological: No: Symptoms reported *Physical Exam - Vital Signs Last Vital Signs Temp Pulse Resp BP Pulse Ox 97.8 F 79 16 128/70 100 09/01/17 12:00 09/01/17 12:00 09/01/17 12:00 09/01/17 12:00 09/01/17 12:00 - Physical Exam General Appearance: Yes: Nourished, Appropriately Dressed. No: Apparent Distress HEENT: positive: TMs Normal (noted black dust to pinna and 2 pieces of black hair in ear) Neck: positive: Supple Respiratory/Chest: positive: Accessory Muscle Use Integumentary: positive: Normal Color, Warm, Moist Neurologic: positive: Motor Strength 5/5 (ambulatory) Medical Decision Making - Medical Decision Making 09/01/17 12:22 Patient with complaints of right ear pain intermittently. 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 Remove hair using alligator forceps. Patient discharged home supportive care recommended to take Motrin or Tylenol for discomfort and avoid manipulation or placing items into the ear. Patient also recommended to wear protective gear for his ears while working and not to let the ear get wet for the next 2 days if symptoms do not improve patient recommended to return to ED for reevaluation or follow up with his primary care doctor. *DC/Admit/Observation/Transfer Diagnosis at time of Disposition: Right ear pain - Discharge Dispostion Disposition: HOME Condition at time of disposition: Good - Referrals Referrals: Davidson Griffiths MD [Primary Care Provider] - - Patient Instructions Printed Discharge Instructions: DI for Ear Pain-Adult Additional Instructions: Take Motrin or Tylenol for discomfort and avoid manipulation or placing items into the ear. I also recommend to wear protective gear for your ears while working and not to let the ear get wet for the next 2 days. If symptoms do not improve I recommendto return to ED for reevaluation or follow up with your primary care doctor. - Post Discharge Activity
== END 2017-09-01 12:40 | disposition home or self-care (01) ==
LOC: JER 11:21 → JERFT 11:21
DX: H92.01 Otalgia, right ear (principal); I10 Essential (primary) hypertension; K26.9 Duodenal ulcer, unspecified as acute or chronic, without hemorrhage or perforation
CPT/HCPCS: 99281-25

== ENCOUNTER 2019-11-28 21:35 | Emergency (ER) | payer OTHER ==
[2019-11-28 21:59] VITALS: BP 141/72; TEMP 97.9; BMI 30.8
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
[2019-11-28 23:52] VITALS: PULSE 80
== END 2019-11-28 23:51 | disposition home or self-care (01) ==
LOC: JER 21:35
DX: T76.11XA Adult physical abuse, suspected, initial encounter (principal); Y04.0XXA Assault by unarmed brawl or fight, initial encounter
CPT/HCPCS: 70450-TC; 70486-TC; 72125-TC; 99285-25